=== PATIENT | male | born 1995 | race African-American/Black ===

== ENCOUNTER 2017-03-17 04:24 | Emergency (ER) | payer MEDICAID, OTHER ==
[2017-03-17 04:37] VITALS: BP 145/76
== END 2017-03-17 06:00 | disposition left against medical advice (07) ==
LOC: ER 04:24
DX: Z53.9 Procedure and treatment not carried out, unspecified reason (principal); S09.92XA Unspecified injury of nose, initial encounter

== ENCOUNTER 2017-03-17 10:24 | Emergency (ER) | payer OTHER, MEDICAID ==
[2017-03-17 10:35] VITALS: BP 148/91
[2017-03-17] MEDS ORDERED: IBUPROFEN 800 MG TABLET PO ONE (11:02)
[2017-03-17] MEDS ORDERED: AMOXICILLIN TR/POT CLAVULANATE 500-125 MG TAB PO ONE (11:03)
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
== END 2017-03-17 12:10 | disposition home or self-care (01) ==
LOC: ER 10:24
DX: S09.90XA Unspecified injury of head, initial encounter (principal); S00.31XA Abrasion of nose, initial encounter; F12.90 Cannabis use, unspecified, uncomplicated; F17.200 Nicotine dependence, unspecified, uncomplicated; W50.3XXA Accidental bite by another person, initial encounter
CPT/HCPCS: 70450; 99284

== ENCOUNTER 2017-03-20 15:35 | Emergency (ER) | payer MEDICAID, OTHER ==
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
[2017-03-20 16:14] LABS: ABSOLUTE EOSINOPHILS # (AUTO) 0.1 10^3/uL (0.0-0.6); ABSOLUTE LYMPHOCYTES (AUTO) 1.8 10^3/uL (0.5-4.7); ABSOLUTE MONOCYTES (AUTO) 0.6 10^3/uL (0.1-1.4); ABSOLUTE NEUT (AUTO) 2.7 10^3/uL (1.7-8.2); BASOPHILS % (AUTO) 0.6 % (0-2); EOSINOPHILS % (AUTO) 1.4 % (0-6); HEMATOCRIT 45.4 % (37.9-51.0); HEMOGLOBIN 15.4 g/dL (13.5-17.0); HGB HCT DIFFERENCE 0.8; LYMPHOCYTES % (AUTO) 35.3 % (13-45); MEAN CORPUSCULAR HEMOGLOBIN 30.3 pg (27.0-33.4); MEAN CORPUSCULAR VOLUME 89 fl (80-97); MONOCYTES % (AUTO) 10.8 % (3-13); RED CELL DISTRIBUTION WIDTH 13.6 % (11.5-14.0); SEGMENTED NEUTROPHILS % (AUTO) 51.9 % (42-78); WHITE BLOOD COUNT 5.1 10^3/uL (4.0-10.5)
[2017-03-20 16:42] LABS: ALANINE AMINOTRANSFERASE 50 U/L (10-40); ALBUMIN 4.7 g/dL (3.7-5.6); ALKALINE PHOSPHATASE 54 U/L (65-260); ANION GAP 10 (5-19); ASPARTATE AMINO TRANSFERASE 107 U/L (10-45); BILIRUBIN,DIRECT 0.3 mg/dL (0.0-0.4); BILIRUBIN,TOTAL 1.5 mg/dL (0.2-1.3); BLOOD UREA NITROGEN 11 mg/dL (7-20); CALCIUM 10.6 mg/dL (8.4-10.2); CARBON DIOXIDE 28 mmol/L (22-30); CHLORIDE 105 mmol/L (98-107); CREATININE RESULT 1.19 mg/dL (0.52-1.25); GLUCOSE 83 mg/dL (75-110); POTASSIUM 4.1 mmol/L (3.6-5.0); SODIUM 143.4 mmol/L (137-145); TOTAL PROTEIN 7.3 g/dL (6.3-8.2)
[2017-03-20 16:43] LABS: ALCOHOL < 10 mg/dL (NONE DETECTED)
[2017-03-20 17:04] LABS: APPEARANCE,URINE CLEAR; BILIRUBIN,URINE NEGATIVE (NEGATIVE); GLUCOSE, URINE NEGATIVE (NEGATIVE); KETONES,URINE NEGATIVE (NEGATIVE); LEUKOCYTE ESTERASE,URINE NEGATIVE (NEGATIVE); NITRITE,URINE NEGATIVE (NEGATIVE); PROTEIN,URINE NEGATIVE (NEGATIVE); URINE SPECIFIC GRAVITY 1.027; UROBILINOGEN,URINE NEGATIVE mg/dL (<2.0)
[2017-03-20] MEDS ORDERED: OLANZAPINE 5 MG TAB.RAPDIS PO ONE (17:15)
[2017-03-20] MEDS ORDERED: FLUOXETINE HCL 20 MG CAPSULE PO ONE (17:16)
[2017-03-20] MEDS ORDERED: BENZTROPINE MESYLATE 1 MG TABLET PO ONE (17:17)
[2017-03-20 17:18] LABS: URINE BARBITURATES SCREEN NEGATIVE; URINE METHADONE SCREEN NEGATIVE; URINE OPIATES LOW NEGATIVE; URINE PHENCYCLIDINE SCREEN NEGATIVE
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
[2017-03-20] MEDS ORDERED: OLANZAPINE INJ/PF 10 MG SDV IM ONE (17:41)
[2017-03-20] MEDS ORDERED: BENZTROPINE MESYLATE INJ 2 MG/2 ML AMPULE IM ONE (17:45)
[2017-03-20] MEDS: OLANZAPINE 5 MG TABLET PO SCH (19:43)
--- NOTE | 2017-03-20 20:08 | EKG REPORT ---
SEVERITY:- OTHERWISE NORMAL ECG - SINUS BRADYCARDIA ATRIAL PREMATURE COMPLEX ST ELEV, PROBABLE NORMAL EARLY REPOL PATTERN : Confirmed by: Jb Feldman 20-Mar-2017 20:07:49
[2017-03-21] MEDS: OLANZAPINE 5 MG TABLET PO SCH (09:46)
--- NOTE | 2017-03-21 12:44 | ER Document Report ---
ED Medical Screen (RME) - General Chief Complaint: Psych Problem Stated Complaint: PSYCH EVAL Time Seen by Provider: 03/20/17 15:42 Mode of Arrival: Ambulatory Notes: Patient is resting comfortably in the bed. He is pleasant and cooperative. He denies any current complaints. He is currently awaiting disposition. TRAVEL OUTSIDE OF THE U.S. IN LAST 30 DAYS: No - Related Data Allergies/Adverse Reactions: No Known Allergies Allergy (Verified 03/17/17 10:32) Home Medications: Current Home Medications Amox Tr/Potassium Clavulanate [Augmentin 875-125 mg Tablet] 1 tab PO BID [History] Past Medical History - Social History Chew tobacco use (# tins/day): No Frequency of alcohol use: None Drug Abuse: None Renal/ Medical History: Denies: Hx Peritoneal Dialysis Traumatic Medical History: Reports: Hx Pneumothorax - Immunizations Immunizations up to date: Yes Hx Diphtheria, Pertussis, Tetanus Vaccination: Yes Physical Exam - Vital signs Vitals: Pulse BP Pulse Ox 81 150/96 H 81 L 03/20/17 15:53 03/20/17 15:53 03/20/17 15:53 Course - Vital Signs Vital signs: Temp Pulse Resp BP Pulse Ox 98.3 F 49 L 18 141/83 H 100 03/21/17 08:14 03/21/17 08:14 03/21/17 08:14 03/21/17 08:14 03/21/17 08:14 - Laboratory Result Diagrams: 03/20/17 16:00 03/20/17 16:00 Laboratory results interpreted by me: 03/20/17 03/20/17 16:00 16:55 Calcium 10.6 H Total Bilirubin 1.5 H AST 107 H ALT 50 H Alkaline Phosphatase 54 L Urine Ascorbic Acid 40 H Salicylates < 1.0 L Acetaminophen < 10 L Doctor's Discharge - Discharge Clinical Impression: Acute matilde, Homicidal ideation Condition: Stable Disposition: HOME, SELF-CARE Referrals: HERMANN MONTERO DO [Primary Care Provider] - Follow up as needed
[2017-03-21 15:27] VITALS: BP 145/98
== END 2017-03-21 15:34 | disposition home or self-care (01) ==
LOC: ER 15:35
DX: R45.851 Suicidal ideations (principal); Z91.14 Patient's other noncompliance with medication regimen; R45.850 Homicidal ideations; F30.8 Other manic episodes
CPT/HCPCS: 93005; 99285; 96372; 36415; 80307 ×4; 85025; 80053; 81001; 93010; J0515

== ENCOUNTER 2017-05-09 16:01 | Emergency (ER) | payer MEDICAID, OTHER ==
[2017-05-09] MEDS ORDERED: LORAZEPAM INJ 2 MG/1 ML VIAL IV ONE (16:13)
[2017-05-09] MEDS ORDERED: NORMAL SALINE 1000 ML 1,000 ML IV ONE (16:13)
[2017-05-09] MEDS ORDERED: DIPHENHYDRAMINE HCL 50 MG/ML VIAL IV ONE (16:16)
--- NOTE | 2017-05-09 16:49 | ER Document Report ---
ED Psych Disorder / Suicide - General Information source: Patient Cannot obtain history due to: Altered mental status TRAVEL OUTSIDE OF THE [place] IN LAST 30 DAYS: No <MARIAH CLARK - Last Filed: 05/09/17 16:47> <MARQUIS SPARKS - Last Filed: 05/10/17 10:52> <TORI STRONG - Last Filed: 05/12/17 09:31> <HERMANN SMITH - Last Filed: 05/12/17 10:43> - General Chief Complaint: Possible Overdose Stated Complaint: POSSIBLE OVERDOSE Time Seen by Provider: 05/09/17 16:11 - HPI Notes: Patient presents to [facility] ER via EMS due to intentional overdose of his Olanzapine. Patient at this time is altered and required medications to assist him in remaining calm for his safety and the safety of others. Patient is recommended for IVC, as he did report he "did it on purpose" for further observation and disposition. I consulted with Dr. Morse in regards to the care and management of this patient. ED MD is in agreement with disposition and recommendations. (MARIAH CLARK) Clinician conducted check-in with patient 05/10/2017: Clinician denies that he took his medication in attempt of suicide. She disclosed "I was down and try to pick myself up." Patient state stated he took too much of his lorazepam. Clinician explained the patient is not prescribed lorazepam he stated "my Zyprexa." Patient presented to [facility] ED with 4 bottles of medications which include Zyprexa, Vistaril, trazodone and Trileptal; all medication bottles were empty. [facility] staff originally was told patient took 5 Trileptal. Patient is still presenting with difficulty staying awake and balance. His mother disclosed the patient had no psychiatric history when he went away to college in [place]. She continued disclosed that the patient's father and she received information the patient started experimenting and drugs and was not attending classes. Patient's father went up to [place] to bead picker the patient and "this is how we got him back." Chart review conducted. Patient is noted to have first [facility] ED psych consult 1 year ago April 2016. Patient identified suicidal ideation with history of attempts and possible psychosocial stressors. No sign of psychosis at that time. Patient was then seen a few weeks later where the patient appeared to be responding to internal stimuli while patient disclosed he was at [facility] because of his drug use. 292.9 (F19.99) unspecified or unknown substance related disorder per history 311 (F32.9) unspecified depressive disorder per history V 62.9 (Z65.9) unspecified problem related to unspecified psychosocial circumstance Patient is still demonstrating difficulties with staying alert. Patient is recommended to continue under IVC because continued cognitive difficulties. Patient will need to be re-evaluated. Dr. Morse was consulted and the care and management of this patient; attending physician is in agreement with recommendations and disposition. Clinician conducted check-in with patient 05/11/2017: Patient disclosed that he needs to get some refills on his medication. Patient continued to state that he takes Zyprexa, Trileptal, Vistaril, and trazodone. When asked about medications and taking all of them at once patient stated "not all of them." Patient reports he is unsure of the last time he went to his therapeutic services because originally he was with [facility] and then transferred to [facility]. Patient states that he was supposed to go to [facility] for his appointment today. When asked about his experience at [facility] he disclosed that he be went on academic probation and then dropped out. Patient refuses to discuss anything further. Patient is very guarded when asked about substance abuse. 292.9 (F19.99) unspecified or unknown substance related disorder per history 311 (F32.9) unspecified depressive disorder per history V 62.9 (Z65.9) unspecified problem related to unspecified psychosocial circumstance Impression\\plan: Patient was recommended for medication adjustments by behavioral health team; however, those medications could not be started until today because of psychosis/overdoses. Patient is still very guarded on his intent. Patient is recommended to continue under IVC for observation and stabilization on new medication regiment. Patient will be reevaluated. Dr. Morse was consulted on the care management of this patient; attending physician is agreement with recommendations and disposition. Clinician conducted check-in with patient 05/12/2017: Patient disclosed that he is "feeling good" and has "more energy" today. He continued to state that he was wondering if there was any medication he could take for anxiety. He continues state that he was concerned that he was having issues with Prozac because it "makes me gassy." Patient was slightly more willing to discuss substance abuse. When asked if patient was doing any drugs he stated "they were all prescribed to me." When asked why the patient took so many at one time patient became very quiet and stated "I do not know...to get high." Patient denies he was attempting to harm himself when taking the medication. Patient disclosed that he had an appointment with [facility] for intake yesterday at 9 AM. 292.9 (F19.99) unspecified or unknown substance related disorder per history 311 (F32.9) unspecified depressive disorder per history V 62.9 (Z65.9) unspecified problem related to unspecified psychosocial circumstance R/O bipolar disorder Impression/plan: Patient is recommended for rescind of IVC and is considered psychiatrically clear for discharge. Patient no longer meets IVC criteria per [place] GS 122C. Patient denies suicidal and homicidal ideation. Delusions are absent and behaviors congruent with intact reality based presentation i.e. organized, linear thought processes. Patient is still slightly guarded in regards to substance abuse however does a bit to taking his medications and attempt at getting high. Patient has had a full 24 hours of new medication regiment with no complications. Patient is recommended to follow-up with outpatient provider, ANAID Kay, upon discharge. Dr. Morse was consulted on the care and management of this patient; attending physician is in agreement with recommendations and disposition. (TORI STRONG) - Related Data Allergies/Adverse Reactions: No Known Allergies Allergy (Verified 05/09/17 16:32) Home Medications: Current Home Medications Hydroxyzine Pamoate [Vistaril 50 mg Capsule] 50 mg PO BIDP PRN 05/09/17 [History ] Olanzapine [Olanzapine Odt] 15 mg PO Q12 05/09/17 [History] Oxcarbazepine [Trileptal] 600 mg PO Q12 05/09/17 [History] Trazodone HCl [Desyrel] 150 mg PO QHS 05/09/17 [History] Past Medical History - Social History Family History: None Patient has suicidal ideation: No Patient has homicidal ideation: No Renal/ Medical History: Denies: Hx Peritoneal Dialysis Traumatic Medical History: Reports: Hx Pneumothorax - Immunizations Immunizations up to date: Yes Hx Diphtheria, Pertussis, Tetanus Vaccination: Yes <AMBER,MARIAH - Last Filed: 05/09/17 16:47> - Social History Smoking Status: Unknown if Ever Smoked <TORI STRONG - Last Filed: 05/12/17 09:31> - Vital signs Vitals: Resp 28 H 05/09/17 16:10 Course - Laboratory Result Diagrams: 05/09/17 16:30 05/09/17 16:30 <MARIAH CLARK - Last Filed: 05/09/17 16:47> - Laboratory Result Diagrams: 05/09/17 16:30 05/09/17 16:30 <MARQUIS SPARKS - Last Filed: 05/10/17 10:52> - Laboratory Result Diagrams: 05/09/17 16:30 05/09/17 16:30 <TORI STRONG - Last Filed: 05/12/17 09:31> - Laboratory Result Diagrams: 05/09/17 16:30 05/09/17 16:30 <HERMANN SMITH - Last Filed: 05/12/17 10:43> - Re-evaluation Re-evalutation: Patient has been seen and evaluated resting comfortably no acute distress. Laboratory values previous provider note and vital signs have been evaluated. Patient otherwise looks to be stable for disposition/transfer. Medications have been ordered for tomorrow. Patient was to be in no obvious distress upon evaluation. (MARQUIS SPARKS) - Vital Signs Vital signs: Temp Pulse Resp BP Pulse Ox 98.5 F 102 H 16 144/83 H 99 05/11/17 19:32 05/12/17 07:03 05/11/17 19:32 05/11/17 19:32 05/12/17 07:03 - Laboratory Laboratory results interpreted by me: 05/09/17 16:30 Sodium 145.9 H Creatinine 1.37 H Alkaline Phosphatase 54 L Salicylates < 1.0 L Acetaminophen < 10 L Discharge <MARIAH CLARK - Last Filed: 05/09/17 16:47> <MARQUIS SPARKS - Last Filed: 05/10/17 10:52> <TORI STRONG - Last Filed: 05/12/17 09:31> <HERMANN SMITH - Last Filed: 05/12/17 10:43> - Discharge Clinical Impression: Substance abuse, Depressive disorder Condition: Stable Disposition: HOME, SELF-CARE Additional Instructions: OVERDOSE / INGESTION: You have taken more medication than you should have. After your evaluation and care, it is felt that your overdose is not likely to be harmful or of any significant consequences to you and you are being discharged. In the future, you should be careful not to take more medications than what is prescribed for you. Although your overdose does not seem to be of any danger to you at this time, if you develop any unusual or unexpected symptoms after your discharge, you should return to the Emergency Department immediately for re-evaluation. DEPRESSION: Your evaluation reveals that you have mental depression. While symptoms may be vague, they often include disturbance of sleep, fatigue, loss of appetite , and general loss of interest in life. While depression may be a side effect of drugs, or a reaction to a major change in your life, many cases have no known cause. If depression is acute, and related to a major loss in your life, you can expect it to clear completely with time. If you have been depressed a long time , are prone to repeated bouts of depression or low mood, or have been thinking of suicide, get help. Depression can be treated with anti-depressant medication and counselling. Long-term depression will often take a few weeks to clear, even with appropriate medication. Follow-up care is important. FOLLOW-UP CARE: Please follow-up with your outpatient mental health provider, [facility], upon discharge to make an appointment. ~ If you experience worsening or a significant change in your symptoms, notify the physician immediately or return to the Emergency Department at any time for re-evaluation. Prescriptions: Benztropine Mesylate [Cogentin 1 mg Tablet] 1 tab PO DAILY #5 tab Fluoxetine HCl [Prozac 20 mg Capsule] 20 mg PO DAILY #5 capsule Olanzapine [Zyprexa 5 mg Tablet] 5 mg PO Q12 #10 tablet Oxcarbazepine [Trileptal] 600 mg PO Q12H #10 tablet Referrals: HERMANN MONTERO, [Primary Care Provider] - Follow up as needed [facility] [Outside] - 05/12/17
[2017-05-09 16:50] LABS: ABSOLUTE EOSINOPHILS # (AUTO) 0.3 10^3/uL (0.0-0.6); ABSOLUTE LYMPHOCYTES (AUTO) 2.5 10^3/uL (0.5-4.7); ABSOLUTE MONOCYTES (AUTO) 0.7 10^3/uL (0.1-1.4); ABSOLUTE NEUT (AUTO) 3.2 10^3/uL (1.7-8.2); BASOPHILS % (AUTO) 0.7 % (0-2); EOSINOPHILS % (AUTO) 4.2 % (0-6); HEMATOCRIT 44.4 % (37.9-51.0); HEMOGLOBIN 15.1 g/dL (13.5-17.0); HGB HCT DIFFERENCE 0.9; LYMPHOCYTES % (AUTO) 37.4 % (13-45); MEAN CORPUSCULAR HEMOGLOBIN 29.8 pg (27.0-33.4); MEAN CORPUSCULAR HGB CONC 34.1 g/dL (32.0-36.0); MEAN CORPUSCULAR VOLUME 88 fl (80-97); MONOCYTES % (AUTO) 9.9 % (3-13); RED BLOOD COUNT 5.07 10^6/uL (4.35-5.55); RED CELL DISTRIBUTION WIDTH 12.9 % (11.5-14.0); SEGMENTED NEUTROPHILS % (AUTO) 47.8 % (42-78); WHITE BLOOD COUNT 6.6 10^3/uL (4.0-10.5)
[2017-05-09 17:01] LABS: APPEARANCE,URINE CLEAR; BILIRUBIN,URINE NEGATIVE (NEGATIVE); GLUCOSE, URINE NEGATIVE (NEGATIVE); KETONES,URINE NEGATIVE (NEGATIVE); LEUKOCYTE ESTERASE,URINE NEGATIVE (NEGATIVE); NITRITE,URINE NEGATIVE (NEGATIVE); PROTEIN,URINE NEGATIVE (NEGATIVE); URINE SPECIFIC GRAVITY 1.002; UROBILINOGEN,URINE NEGATIVE mg/dL (<2.0)
[2017-05-09 17:14] LABS: ALANINE AMINOTRANSFERASE 37 U/L (10-40); ALBUMIN 4.6 g/dL (3.7-5.6); ALKALINE PHOSPHATASE 54 U/L (65-260); ANION GAP 16 (5-19); ASPARTATE AMINO TRANSFERASE 31 U/L (10-45); BILIRUBIN,DIRECT 0.3 mg/dL (0.0-0.4); BILIRUBIN,TOTAL 1.2 mg/dL (0.2-1.3); BLOOD UREA NITROGEN 15 mg/dL (7-20); CALCIUM 9.8 mg/dL (8.4-10.2); CARBON DIOXIDE 27 mmol/L (22-30); CHLORIDE 103 mmol/L (98-107); CREATININE RESULT 1.37 mg/dL (0.52-1.25); GLUCOSE 83 mg/dL (75-110); POTASSIUM 4.1 mmol/L (3.6-5.0); SODIUM 145.9 mmol/L (137-145); TOTAL PROTEIN 7.4 g/dL (6.3-8.2)
[2017-05-09 17:15] LABS: ALCOHOL < 10 mg/dL (NONE DETECTED)
[2017-05-09 17:23] LABS: URINE BARBITURATES SCREEN NEGATIVE; URINE METHADONE SCREEN NEGATIVE; URINE OPIATES LOW NEGATIVE; URINE PHENCYCLIDINE SCREEN NEGATIVE
[2017-05-09] MEDS ORDERED: LORAZEPAM INJ 2 MG/1 ML VIAL IM ONE ×3 (17:34→23:27)
[2017-05-09] MEDS ORDERED: LORAZEPAM INJ 2 MG/1 ML VIAL ONE (17:36)
--- NOTE | 2017-05-09 18:17 | EKG REPORT ---
SEVERITY:- ABNORMAL ECG - SINUS TACHYCARDIA DIFFUSE NONSPECIFIC ST-T CHANGES : Confirmed by: Alexis Dumont MD 09-May-2017 18:16:25
[2017-05-09] MEDS ORDERED: ACETAMINOPHEN 325 MG TABLET PO ONE (23:26)
--- NOTE | 2017-05-10 10:59 | ER Document Report ---
ED General - General Chief Complaint: Possible Overdose Stated Complaint: POSSIBLE OVERDOSE Time Seen by Provider: 05/09/17 16:11 TRAVEL OUTSIDE OF THE [place] IN LAST 30 DAYS: No - HPI Patient complains to provider of: Overdose Notes: HPI is performed at this time due to possible [employer] error in the leading original HPI. Patient came in yesterday for an overdose. Patient took approximately 15 tablets 5 mg of Zyprexa. Upon my evaluation patient has jerking motions and is agitated. Patient was given Ativan, and down. Patient is unaware why he took some any medications denies any suicidal ideation. Later family arrived stating the patient took extra medication because he had not been taking it and wanted to "catch up". - Related Data Allergies/Adverse Reactions: No Known Allergies Allergy (Verified 05/09/17 16:32) Home Medications: Current Home Medications Hydroxyzine Pamoate [Vistaril 50 mg Capsule] 50 mg PO BID PRN 05/09/17 [History] Olanzapine [Olanzapine Odt] 15 mg PO BID 05/09/17 [History] Oxcarbazepine [Trileptal] 600 mg PO BID 05/09/17 [History] Trazodone HCl [Desyrel] 150 mg PO DAILY 05/09/17 [History] Past Medical History - General Information source: Patient - Social History Smoking Status: Unknown if Ever Smoked Family History: None Patient has suicidal ideation: No Patient has homicidal ideation: No Renal/ Medical History: Denies: Hx Peritoneal Dialysis Psychiatric Medical History: Reports: Hx Bipolar Disorder Traumatic Medical History: Reports: Hx Pneumothorax - Immunizations Immunizations up to date: Yes Hx Diphtheria, Pertussis, Tetanus Vaccination: Yes Review of Systems - Review of Systems -: Yes ROS unobtainable due to patient's medical condition - Overdose of unknown intent Physical Exam - Vital signs Vitals: Resp 28 H 05/09/17 16:10 Interpretation: Normal - General General appearance: Alert, Other - Agitated - HEENT Head: Normocephalic, Atraumatic Eyes: Normal Pupils: PERRL - Respiratory Respiratory status: No respiratory distress Chest status: Nontender Breath sounds: Normal Chest palpation: Normal - Cardiovascular Rhythm: Regular Heart sounds: Normal auscultation Murmur: No - Abdominal Inspection: Normal Distension: No distension Bowel sounds: Normal Tenderness: Nontender Organomegaly: No organomegaly - Back Back: Normal, Nontender - Extremities General upper extremity: Normal inspection, Nontender, Normal color, Normal ROM , Normal temperature General lower extremity: Normal inspection, Nontender, Normal color, Normal ROM , Normal temperature, Normal weight bearing. No: Devon's sign - Neurological Neuro grossly intact: Yes Cognition: Normal Orientation: AAOx4 Javan Coma Scale Eye Opening: Spontaneous Javan Coma Scale Verbal: Oriented [place] Coma Scale Motor: Obeys Commands [place] Coma Scale Total: 15 Speech: Normal Motor strength normal: LUE, RUE, LLE, RLE Sensory: Normal - Psychological Associated symptoms: Agitated - Skin Skin Temperature: Warm Skin Moisture: Dry Skin Color: Normal Course - Re-evaluation Re-evalutation: 05/10/17 10:59 Patient was placed on IVC paperwork at this time overdose of unknown intent possible self-harm. Will be evaluated by mental health team. - Vital Signs Vital signs: Temp Pulse Resp BP Pulse Ox 98.2 F 88 18 122/82 100 05/10/17 10:48 05/10/17 10:48 05/10/17 10:48 05/10/17 10:48 05/10/17 10:48 - Laboratory Result Diagrams: 05/09/17 16:30 05/09/17 16:30 Laboratory results interpreted by me: 05/09/17 16:30 Sodium 145.9 H Creatinine 1.37 H Alkaline Phosphatase 54 L Salicylates < 1.0 L Acetaminophen < 10 L Discharge - Discharge Referrals: HERMANN MONTERO DO [Primary Care Provider] - Follow up as needed
--- NOTE | 2017-05-10 11:00 | ER Document Report ---
Doctor's Note Notes: 05/10/17 10:59 Patient has been seen and evaluated resting comfortably no acute distress. Laboratory values previous provider note and vital signs have been evaluated. Patient otherwise looks to be stable for disposition/transfer.
--- NOTE | 2017-05-11 09:20 | ER Document Report ---
Doctor's Note Notes: 05/11/17 09:19 This is a 21-year-old man with a psychiatric history who is brought into the emergency room by EMS after an overdose with olanzapine. The patient initially required sedation in the emergency room and was subsequently medically cleared. His labs and vital signs have been stable. He is currently awaiting further psychiatric evaluation.
[2017-05-11] MEDS: OLANZAPINE 5 MG TABLET PO SCH ×2 (10:09→19:30)
[2017-05-11] MEDS: FLUOXETINE HCL 20 MG CAPSULE PO SCH (10:09)
[2017-05-11] MEDS: OXCARBAZEPINE 150 MG TABLET PO SCH ×2 (10:10→19:30)
[2017-05-11] MEDS: BENZTROPINE MESYLATE 1 MG TABLET PO SCH (10:10)
[2017-05-11 19:33] VITALS: BP 144/83
[2017-05-11] MEDS ORDERED: HYDROXYZINE PAMOATE 25 MG CAPSULE PO ONE (22:30)
--- NOTE | 2017-05-12 10:11 | ER Document Report ---
Doctor's Note Notes: 05/12/17 10:11 Rounds: Chart reviewed and patient interviewed. Patient is being evaluated after an overdose of olanzapine. Labs are essentially normal. Vital signs are all essentially normal. Patient denies suicidal thoughts. Patient appears to be medically stable for transfer or discharge. Abdias Bush MD
[2017-05-12] MEDS: BENZTROPINE MESYLATE 1 MG TABLET PO SCH (10:45)
[2017-05-12] MEDS: FLUOXETINE HCL 20 MG CAPSULE PO SCH (10:46)
[2017-05-12] MEDS: OLANZAPINE 5 MG TABLET PO SCH (10:46)
[2017-05-12] MEDS: OXCARBAZEPINE 150 MG TABLET PO SCH (10:46)
== END 2017-05-12 12:58 | disposition home or self-care (01) ==
LOC: ER 16:01
DX: F19.99 Other psychoactive substance use, unspecified with unspecified psychoactive substance-induced disorder (principal); R41.82 Altered mental status, unspecified; T43.591A Poisoning by other antipsychotics and neuroleptics, accidental (unintentional), initial encounter; F32.9 Major depressive disorder, single episode, unspecified; Z65.9 Problem related to unspecified psychosocial circumstances
CPT/HCPCS: 93005; 96376; 99285; 96372; 96361; 96374; 96375; 36415; 80307 ×4; 85025; 80053; 81001; 93010; J1200; J2060; J7030

== ENCOUNTER 2017-12-05 00:12 | Emergency (ER) | payer MEDICAID, OTHER ==
[2017-12-05] MEDS ORDERED: DIPH/PERTUSS(ACELL)/TETANUS VAC/PF 0.5 ML SYR (>=10YO) IM ONE (00:43)
[2017-12-05] MEDS ORDERED: NORMAL SALINE 1000 ML 1,000 ML IV ONE ×2 (00:43→03:02)
[2017-12-05] MEDS ORDERED: ONDANSETRON HCL INJ/PF 4 MG/2 ML SDV IV ONE (00:43)
--- NOTE | 2017-12-05 00:45 | ER Document Report ---
ED GI/ - General Chief Complaint: Nausea/Vomiting Stated Complaint: VOMITING Time Seen by Provider: 12/05/17 00:42 Mode of Arrival: Ambulatory Information source: Patient Notes: Patient presents complaining of nausea vomiting diarrhea that started this evening. Patient complains of some generalized abdominal tenderness. Patient states she is vomited 6 times and had diarrhea 2. Patient denies any blood in his emesis or stool. TRAVEL OUTSIDE OF THE [place] IN LAST 30 DAYS: No - HPI Patient complains to provider of: Abdominal pain, Diarrhea, Vomiting Onset: This evening Timing/Duration: Gradual Quality of pain: Cramping Pain Level: 2 Associated symptoms: Diarrhea, Nausea, Vomiting. denies: Fever Exacerbated by: Denies Relieved by: Denies Similar symptoms previously: No Recently seen / treated by doctor: No - Related Data Allergies/Adverse Reactions: No Known Allergies Allergy (Verified 05/09/17 16:32) Past Medical History - General Information source: Patient - Social History Smoking Status: Never Smoker Frequency of alcohol use: None Drug Abuse: Marijuana Occupation: None Lives with: Family Family History: None Renal/ Medical History: Denies: Hx Peritoneal Dialysis Psychiatric Medical History: Reports: Hx Bipolar Disorder Traumatic Medical History: Reports: Hx Pneumothorax Surgical Hx: Negative - Immunizations Immunizations up to date: Yes Hx Diphtheria, Pertussis, Tetanus Vaccination: Yes Review of Systems - Review of Systems Constitutional: No symptoms reported. denies: Fever EENT: No symptoms reported Cardiovascular: No symptoms reported Respiratory: No symptoms reported. denies: Cough, Short of breath Gastrointestinal: Abdominal pain, Diarrhea, Nausea, Vomiting Genitourinary: No symptoms reported. denies: Dysuria Male Genitourinary: No symptoms reported Musculoskeletal: No symptoms reported. denies: Back pain Skin: No symptoms reported Hematologic/Lymphatic: No symptoms reported Neurological/Psychological: No symptoms reported Physical Exam - Vital signs Vitals: Pulse Resp BP Pulse Ox 82 18 138/72 H 99 12/05/17 05:07 12/05/17 05:07 12/05/17 05:07 12/05/17 05:07 - General General appearance: Appears well, Alert In distress: None - HEENT Head: Abrasions, Ecchymosis - nasal bridge, left orbital area. No: [place]'s eyes Eyes: Periorbital ecchymosis - left Conjunctiva: Normal Extraocular movements intact: Yes Pupils: PERRL Nasal: Ecchymosis, Swelling. No: Epistaxis, Septal hematoma Neck: Normal, Supple - Respiratory Respiratory status: No respiratory distress Chest status: Nontender Breath sounds: Normal. No: Rales, Rhonchi, Stridor, Wheezing Chest palpation: Normal - Cardiovascular Rhythm: Regular Heart sounds: S1 appreciated, S2 appreciated Murmur: No - Abdominal Inspection: Normal Distension: No distension Bowel sounds: Normal Tenderness: Tender - Generalized abdominal tenderness Organomegaly: No organomegaly - Back Back: Normal, Nontender - Extremities General upper extremity: Normal inspection, Normal ROM General lower extremity: Normal inspection, Normal ROM - Neurological Neuro grossly intact: Yes Cognition: Normal [place] Coma Scale Eye Opening: Spontaneous [place] Coma Scale Verbal: Oriented [place] Coma Scale Motor: Obeys Commands [place] Coma Scale Total: 15 - Psychological Associated symptoms: Normal affect, Normal mood - Skin Skin Color: Ecchymosis - Left periorbital Course - Re-evaluation Re-evalutation: 12/05/17 04:29 Patient sleeping, arouses easily to voice. Patient without any active vomiting while here in the ER. Patient tolerating oral fluids without emesis. Patient' s abdomen soft, nontender. Patient nontoxic in appearance. - Vital Signs Vital signs: Temp Pulse Resp BP Pulse Ox 82 18 138/72 H 99 12/05/17 05:07 12/05/17 05:07 12/05/17 05:07 12/05/17 05:07 - Laboratory Result Diagrams: 12/05/17 01:02 12/05/17 01:02 Laboratory results interpreted by me: 12/05/17 12/05/17 12/05/17 01:02 01:02 02:36 Seg Neutrophils % 78.8 H Lymphocytes % 6.7 L Absolute Lymphocytes 0.4 L Sodium 148.1 H Glucose 126 H Calcium 10.5 H Total Bilirubin 2.5 H Urine Protein 30 H Urine Ketones 80 H Labs- Entire Visit 12/05/17 12/05/17 12/05/17 01:02 01:02 02:36 WBC 5.4 RBC 5.10 Hgb 15.4 Hct 44.7 MCV 88 MCH 30.2 MCHC 34.5 RDW 13.7 Plt Count 229 Seg Neutrophils % 78.8 H Lymphocytes % 6.7 L Monocytes % 9.2 Eosinophils % 4.9 Basophils % 0.4 Absolute Neutrophils 4.3 Absolute Lymphocytes 0.4 L Absolute Monocytes 0.5 Absolute Eosinophils 0.3 Absolute Basophils 0.0 Sodium 148.1 H Potassium 3.8 Chloride 107 Carbon Dioxide 22 Anion Gap 19 BUN 16 Creatinine 1.02 Est GFR ( Amer) > 60 Est GFR (Non-Af Amer) > 60 Glucose 126 H Calcium 10.5 H Total Bilirubin 2.5 H Direct Bilirubin 0.3 Neonat Total Bilirubin Not Reportable Neonat Direct Bilirubin Not Reportable Neonat Indirect Bili Not Reportable AST 32 ALT 30 Alkaline Phosphatase 60 Total Protein 7.7 Albumin 4.8 Lipase 79.9 Urine Color YELLOW Urine Appearance CLEAR Urine pH 7.0 Ur Specific [place] 1.032 Urine Protein 30 H Urine Glucose (UA) NEGATIVE Urine Ketones 80 H Urine Blood NEGATIVE Urine Nitrite NEGATIVE Urine Bilirubin NEGATIVE Urine Urobilinogen NEGATIVE Ur Leukocyte Esterase NEGATIVE Urine WBC (Auto) 2 Urine RBC (Auto) 1 Squamous Epi Cells Auto <1 Urine Mucus (Auto) FEW Urine Ascorbic Acid NEGATIVE Urine Opiates Screen Urine Methadone Screen Ur Barbiturates Screen Ur Phencyclidine Scrn Ur Amphetamines Screen U Benzodiazepines Scrn Urine Cocaine Screen U Marijuana (THC) Screen 12/05/17 02:36 WBC RBC Hgb Hct MCV MCH MCHC RDW Plt Count Seg Neutrophils % Lymphocytes % Monocytes % Eosinophils % Basophils % Absolute Neutrophils Absolute Lymphocytes Absolute Monocytes Absolute Eosinophils Absolute Basophils Sodium Potassium Chloride Carbon Dioxide Anion Gap BUN Creatinine Est GFR ( Amer) Est GFR (Non-Af Amer) Glucose Calcium Total Bilirubin Direct Bilirubin Neonat Total Bilirubin Neonat Direct Bilirubin Neonat Indirect Bili AST ALT Alkaline Phosphatase Total Protein Albumin Lipase Urine Color Urine Appearance Urine pH Ur Specific [place] Urine Protein Urine Glucose (UA) Urine Ketones Urine Blood Urine Nitrite Urine Bilirubin Urine Urobilinogen Ur Leukocyte Esterase Urine WBC (Auto) Urine RBC (Auto) Squamous Epi Cells Auto Urine Mucus (Auto) Urine Ascorbic Acid Urine Opiates Screen NEGATIVE Urine Methadone Screen NEGATIVE Ur Barbiturates Screen NEGATIVE Ur Phencyclidine Scrn NEGATIVE Ur Amphetamines Screen NEGATIVE U Benzodiazepines Scrn NEGATIVE Urine Cocaine Screen NEGATIVE U Marijuana (THC) Screen UNCONFIRMED POSITIVE Discharge - Discharge Clinical Impression: Nausea vomiting and diarrhea Condition: Stable Disposition: HOME, SELF-CARE Additional Instructions: Return immediately for any new or worsening symptoms Followup with your primary care provider, call tomorrow to make a followup appointment VOMITING: Vomiting (or nausea without vomiting) can be caused by many other different problems. It can mean that something's wrong with the stomach, such as ulcers or inflammation or the intestinal tract, such as appendicitis. But it can also be a symptom of a problem that has nothing to do with the stomach or intestines. Vomiting is common with severe headaches, earaches, tonsillitis, and kidney infections, etc. We see it with pneumonia or heart attacks. Drugs can cause nausea and vomiting. Many abdominal problems cause vomiting; for example, gallstones, kidney stones, pancreatitis, and intestinal obstruction ( blocked bowels). In most cases, curing the vomiting depends on fixing the problem that caused it. For temporary relief, we may use an anti-nausea medicine. For home use, we can prescribe suppositories, chewable pills, pills that dissolve in the mouth, or liquid anti-nausea drugs. If the vomiting seems to be caused by a problem in the stomach, acid-suppressing drugs may be prescribed as well. It's important to avoid dehydration. Sip small amounts of clear liquids ( soft drinks, tea, broth, etc) . Try to take fluids frequently even if you are vomiting to prevent dehydration. Take increasing amounts of fluid and when liquids are being consumed successfully, advance to small amounts of bland food (toast, soups, mashed potatoes, etc.) until you are able to resume a regular diet. Avoid aspirin, tobacco, and alcohol. If the vomiting worsens, if the problem that's making you vomit worsens, or if there's evidence of bleeding in the stomach (such as black, tarry stool, or bloody or black vomit), you should return immediately. Also, return if abdominal pain worsens or becomes localized to one area or you develop high fever. Call your doctor if you aren't improved in 24 hours. DIARRHEA, NON-SPECIFIC: Diarrhea means frequent, watery stools. There are many causes. Any problem that keeps the intestinal tract from absorbing water from the stool can lead to diarrhea. A sudden new diarrhea problem is usually caused by a virus, food sensitivity, toxic bacteria, or drugs. In this case, we expect the problem to go away soon. Testing is done only if you seem seriously ill from the diarrhea. If you have chronic diarrhea, or diarrhea that keeps coming back, we need to find out why. Chronic diarrhea can be due to inflammation of the bowels such as Crohn's disease or ulcerative colitis, food sensitivity such as intolerance to lactose or wheat protein, irritable bowel syndrome, and other problems. If your diarrhea is a significant problem but it's not clear why you have it, we' ll refer you to a specialist for further testing. During an episode of diarrhea, drink small amounts (two to six ounces) of clear liquids (soft drinks, sport drinks, herb teas, broth, etc). Take fluids frequently to prevent dehydration. It's usually not a problem to take mild anti- diarrhea medication such as Kaopectate or Pepto-Bismol. As the diarrhea eases, advance to small amounts of bland food (mashed potato, toast) for 24 hours. Call the physician if blood appears in your vomit or stool, if vomiting lasts longer than 24 hours, if the abdominal pain worsens or becomes localized to one area, if you develop high fever, or if you become lightheaded and weak. VIRAL SYNDROME: The physician has diagnosed a viral infection. Viruses not only cause "colds," but can cause many different symptoms including generalized aching, fever, headache, cough, diarrhea, nausea, vomiting, and fatigue. The treatment, for the most part, is simply relief of symptoms. This means that antibiotics are usually not given. Rest, fluids, pain medications and, occasionally, medication for the specific symptoms that are most bothersome will be prescribed. Use good handwashing to avoid passing the virus to others. Shared toys should be cleaned with disinfectant. Clean the toilets, sinks, and counter surfaces in bathrooms. Launder clothing in hot water. Contact the physician if you develop any new or unusual symptoms such as severe headache, stiff neck, high fever, chest pain, productive cough, or shortness of breath. You should be rechecked if you don't see marked improvement within seven to 10 days. INTRAVENOUS (I V) FLUIDS: As part of your care today, you received intravenous (IV) fluids. IV fluids are administered to patients who are dehydrated or to those who have certain chemical (electrolyte) abnormalities that need correcting. ANTINAUSEA MEDICATION: You have been given a medication to suppress nausea and vomiting. This type of medication can be given as a shot, pill, or suppository. It will usually last for many hours. Pills and shots usually last six to eight hours. For the typical illness, only one or two doses of the medication may be necessary. Mild lightheadedness may occur. This type of medicine can cause drowsiness. Do not drive or operate dangerous machinery while under its influence. Do not mix with alcohol. See your doctor at once if you have muscle spasms or tightness, or uncontrollable motions (particularly of the neck, mouth, or jaw). Persistent vomiting or severe lightheadedness should also be evaluated by the physician. FOLLOW-UP CARE: If you have been referred to a physician for follow-up care, call the physician s office for an appointment as you were instructed or within the next two days. If you experience worsening or a significant change in your symptoms, notify the physician immediately or return to the Emergency Department at any time for re-evaluation. Prescriptions: Ondansetron HCl [Zofran 4 mg Tablet] 1 - 2 tab PO Q6 PRN #15 tablet PRN Reason: Referrals: [facility] [Provider Group] - Follow up tomorrow
[2017-12-05 01:12] LABS: ABSOLUTE EOSINOPHILS # (AUTO) 0.3 10^3/uL (0.0-0.6); ABSOLUTE LYMPHOCYTES (AUTO) 0.4 10^3/uL (0.5-4.7); ABSOLUTE MONOCYTES (AUTO) 0.5 10^3/uL (0.1-1.4); ABSOLUTE NEUT (AUTO) 4.3 10^3/uL (1.7-8.2); BASOPHILS % (AUTO) 0.4 % (0-2); EOSINOPHILS % (AUTO) 4.9 % (0-6); HEMATOCRIT 44.7 % (37.9-51.0); HEMOGLOBIN 15.4 g/dL (13.5-17.0); LYMPHOCYTES % (AUTO) 6.7 % (13-45); MEAN CORPUSCULAR HEMOGLOBIN 30.2 pg (27.0-33.4); MEAN CORPUSCULAR HGB CONC 34.5 g/dL (32.0-36.0); MEAN CORPUSCULAR VOLUME 88 fl (80-97); MONOCYTES % (AUTO) 9.2 % (3-13); PLATELET COUNT 229 10^3/uL (150-450); RED CELL DISTRIBUTION WIDTH 13.7 % (11.5-14.0); SEGMENTED NEUTROPHILS % (AUTO) 78.8 % (42-78); TOTAL CELLS COUNTED % (AUTO) 100 %; WHITE BLOOD COUNT 5.4 10^3/uL (4.0-10.5)
[2017-12-05 01:23] LABS: ALANINE AMINOTRANSFERASE 30 U/L (21-72); ALBUMIN 4.8 g/dL (3.5-5.0); ALKALINE PHOSPHATASE 60 U/L (38-126); ANION GAP 19 (5-19); ASPARTATE AMINO TRANSFERASE 32 U/L (17-59); BILIRUBIN,DIRECT 0.3 mg/dL (0.0-0.4); BILIRUBIN,TOTAL 2.5 mg/dL (0.2-1.3); BLOOD UREA NITROGEN 16 mg/dL (7-20); CALCIUM 10.5 mg/dL (8.4-10.2); CARBON DIOXIDE 22 mmol/L (22-30); CHLORIDE 107 mmol/L (98-107); GLUCOSE 126 mg/dL (75-110); LIPASE 79.9 U/L (23-300); POTASSIUM 3.8 mmol/L (3.6-5.0); SODIUM 148.1 mmol/L (137-145); TOTAL PROTEIN 7.7 g/dL (6.3-8.2)
[2017-12-05 02:55] LABS: APPEARANCE,URINE CLEAR; BILIRUBIN,URINE NEGATIVE (NEGATIVE); COLOR,URINE YELLOW; GLUCOSE, URINE NEGATIVE (NEGATIVE); KETONES,URINE 80 mg/dL (NEGATIVE); LEUKOCYTE ESTERASE,URINE NEGATIVE (NEGATIVE); NITRITE,URINE NEGATIVE (NEGATIVE); PROTEIN,URINE 30 mg/dL (NEGATIVE); URINE SPECIFIC GRAVITY 1.032; UROBILINOGEN,URINE NEGATIVE mg/dL (<2.0)
[2017-12-05 03:35] LABS: URINE AMPHETAMINES SCREEN NEGATIVE; URINE BARBITURATES SCREEN NEGATIVE; URINE BENZODIAZEPINES SCREEN NEGATIVE; URINE COCAINE SCREEN NEGATIVE; URINE MARIJUANA (THC) SCREEN UNCONFIRMED POSITIVE; URINE METHADONE SCREEN NEGATIVE; URINE PHENCYCLIDINE SCREEN NEGATIVE
[2017-12-05 05:09] VITALS: BP 138/72
== END 2017-12-05 05:08 | disposition home or self-care (01) ==
LOC: ER 00:12
DX: R11.2 Nausea with vomiting, unspecified (principal); R19.7 Diarrhea, unspecified; R10.84 Generalized abdominal pain; Z23 Encounter for immunization
CPT/HCPCS: 99284; 96361; 90471; 96374; 36415; 83690; 85025; 80053; 81001; 80307; 90715; J2405; J7030

== ENCOUNTER 2018-01-29 01:04 | Emergency (ER) | payer MEDICAID ==
[2018-01-29 01:10] VITALS: BP 133/70
[2018-01-29] MEDS ORDERED: ONDANSETRON 4 MG TAB.RAPDIS PO ONE (02:03)
--- NOTE | 2018-01-29 02:07 | ER Document Report ---
ED General - General Chief Complaint: Nausea Stated Complaint: NAUSEA/STOMACH PAIN Time Seen by Provider: 01/29/18 02:03 Notes: Patient is a 22-year-old male, past medical history bipolar, GERD, presents with 2 days of intermittent nausea and intermittent indigestion symptoms. He only having nausea upon my evaluation. Patient is also requesting restarting some of his bipolar medications, but not all of them. He denies current abdominal pain, vomiting, diarrhea, constipation, back pain, suicidal ideation, homicidal ideation, fevers or urinary symptoms. TRAVEL OUTSIDE OF THE [place] IN LAST 30 DAYS: No - Related Data Allergies/Adverse Reactions: No Known Allergies Allergy (Verified 05/09/17 16:32) Past Medical History - General Information source: Patient - Social History Smoking Status: Unknown if Ever Smoked Family History: None Renal/ Medical History: Denies: Hx Peritoneal Dialysis Psychiatric Medical History: Reports: Hx Bipolar Disorder Traumatic Medical History: Reports: Hx Pneumothorax - Immunizations Immunizations up to date: Yes Hx Diphtheria, Pertussis, Tetanus Vaccination: Yes Review of Systems - Review of Systems Notes: REVIEW OF SYSTEMS: CONSTITUTIONAL: -fevers, -chills EENT: -eye pain, -difficulty swallowing, -nasal congestion CARDIOVASCULAR: -chest pain, -syncope. RESPIRATORY: -cough, -SOB GASTROINTESTINAL: -abdominal pain, +nausea, -vomiting, -diarrhea GENITOURINARY: -dysuria, -hematuria MUSCULOSKELETAL: -back pain, -neck pain SKIN: -rash or skin lesions. HEMATOLOGIC: -easy bruising or bleeding. LYMPHATIC: -swollen, enlarged glands. NEUROLOGICAL: -altered mental status or loss of consciousness, -headache, - neurologic symptoms PSYCHIATRIC: -anxiety, -depression. ALL OTHER SYSTEMS REVIEWED AND NEGATIVE. Physical Exam - Vital signs Vitals: Temp Pulse Resp BP Pulse Ox 98.7 F 60 18 133/70 H 99 01/29/18 01:09 01/29/18 01:09 01/29/18 01:09 01/29/18 01:01/29/18 01:09 - Notes Notes: PHYSICAL EXAMINATION: GENERAL: Well-appearing, well-nourished and in no acute distress. HEAD: Atraumatic, normocephalic. EYES: Pupils equal round and reactive to light, extraocular movements intact, sclera anicteric, conjunctiva are normal. ENT: nares patent, oropharynx clear without exudates. Moist mucous membranes. NECK: Normal range of motion, supple without lymphadenopathy LUNGS: Breath sounds clear to auscultation bilaterally and equal. No wheezes rales or rhonchi. HEART: Regular rate and rhythm without murmurs ABDOMEN: Soft, nontender, normoactive bowel sounds. No guarding, no rebound. No masses appreciated. EXTREMITIES: Normal range of motion, no pitting or edema. No cyanosis. NEUROLOGICAL: Cranial nerves grossly intact. Normal speech, normal gait. Normal sensory and motor exams. PSYCH: Normal mood, normal affect. SKIN: Warm, Dry, normal turgor, no rashes or lesions noted. Course - Re-evaluation Re-evalutation: Patient appears very well. His abdomen is completely soft and nontender. Vital signs are normal. After Zofran, he feels much better and is drinking without any nausea or vomiting. Told patient that he needs to follow-up with his mental health providers at [facility] to discuss his bipolar medications. - Vital Signs Vital signs: Temp Pulse Resp BP Pulse Ox 98.7 F 60 18 133/70 H 99 01/29/18 01:09 01/29/18 01:09 01/29/18 01:09 01/29/18 01:09 01/29/18 01:09 Discharge - Discharge Clinical Impression: Nausea Condition: Stable Disposition: HOME, SELF-CARE Additional Instructions: VOMITING: Vomiting (or nausea without vomiting) can be caused by many other different problems. It can mean that something's wrong with the stomach, such as ulcers or inflammation or the intestinal tract, such as appendicitis. But it can also be a symptom of a problem that has nothing to do with the stomach or intestines. Vomiting is common with severe headaches, earaches, tonsillitis, and kidney infections, etc. We see it with pneumonia or heart attacks. Drugs can cause nausea and vomiting. Many abdominal problems cause vomiting; for example, gallstones, kidney stones, pancreatitis, and intestinal obstruction ( blocked bowels). In most cases, curing the vomiting depends on fixing the problem that caused it. For temporary relief, we may use an anti-nausea medicine. For home use, we can prescribe suppositories, chewable pills, pills that dissolve in the mouth, or liquid anti-nausea drugs. If the vomiting seems to be caused by a problem in the stomach, acid-suppressing drugs may be prescribed as well. It's important to avoid dehydration. Sip small amounts of clear liquids ( soft drinks, tea, broth, etc) . Try to take fluids frequently even if you are vomiting to prevent dehydration. Take increasing amounts of fluid and when liquids are being consumed successfully, advance to small amounts of bland food (toast, soups, mashed potatoes, etc.) until you are able to resume a regular diet. Avoid aspirin, tobacco, and alcohol. If the vomiting worsens, if the problem that's making you vomit worsens, or if there's evidence of bleeding in the stomach (such as black, tarry stool, or bloody or black vomit), you should return immediately. Also, return if abdominal pain worsens or becomes localized to one area or you develop high fever. Call your doctor if you aren't improved in 24 hours. ANTINAUSEA MEDICATION: You have been given a medication to suppress nausea and vomiting. This type of medication can be given as a shot, pill, or suppository. It will usually last for many hours. Pills and shots usually last six to eight hours. For the typical illness, only one or two doses of the medication may be necessary. Mild lightheadedness may occur. This type of medicine can cause drowsiness. Do not drive or operate dangerous machinery while under its influence. Do not mix with alcohol. See your doctor at once if you have muscle spasms or tightness, or uncontrollable motions (particularly of the neck, mouth, or jaw). Persistent vomiting or severe lightheadedness should also be evaluated by the physician. FOLLOW-UP CARE: If you have been referred to a physician for follow-up care, call the physician s office for an appointment as you were instructed or within the next two days. If you experience worsening or a significant change in your symptoms, notify the physician immediately or return to the Emergency Department at any time for re-evaluation. Prescriptions: Ondansetron [Zofran Odt 4 mg Tablet] 1 - 2 tab PO Q4H PRN #10 tab.rapdis PRN Reason: For Nausea/Vomiting Forms: Elevated Blood Pressure Referrals: [facility] [Outside] - [facility] - Follow up as needed
== END 2018-01-29 02:30 | disposition home or self-care (01) ==
LOC: ER 01:04
DX: R11.0 Nausea (principal); Z87.19 Personal history of other diseases of the digestive system
CPT/HCPCS: 99283; S0119

== ENCOUNTER 2018-05-03 12:54 | Emergency (ER) | payer MEDICAID ==
--- NOTE | 2018-05-03 13:16 | ER Document Report ---
ED Psych Disorder / Suicide - General TRAVEL OUTSIDE OF THE [place] IN LAST 30 DAYS: No <HERMANN SMITH - Last Filed: 05/03/18 19:27> <TORI STRONG - Last Filed: 05/04/18 09:03> <ELHAM ORONA - Last Filed: 05/04/18 10:07> - General Chief Complaint: Psych Problem Stated Complaint: PSYCH PROBLEM Time Seen by Provider: 05/03/18 13:01 Notes: Presents actively psychotic, confused, making statements that do not make sense. When asked why he is here, patient says he "can't feel shit". Then, patient will not answer any questions or follow any commands. Immediately upon his being brought to the room, he began acting as if he might try to escape. He was placed in restraints. Patient unable to provide any other helpful history. Reviewing the patient's past visits show that he was here 3 times in 2016, and once in 2017, for psychiatric problems, but no other visits for psychiatric conditions. (HERMANN SMITH) - Related Data Allergies/Adverse Reactions: No Known Allergies Allergy (Verified 05/09/17 16:32) Past Medical History - Social History Smoking Status: Unknown if Ever Smoked Family History: None, Reviewed & Not Pertinent Patient has suicidal ideation: No Patient has homicidal ideation: No Psychiatric Medical History: Reports: Hx Bipolar Disorder Traumatic Medical History: Reports: Hx Pneumothorax - Immunizations Immunizations up to date: Yes Hx Diphtheria, Pertussis, Tetanus Vaccination: Yes <HERMANN SMITH - Last Filed: 05/03/18 19:27> Review of Systems - Review of Systems -: Yes ROS unobtainable due to patient's medical condition <HERMANN SMITH - Last Filed: 05/03/18 19:27> Physical Exam - Vital signs Interpretation: Hypertensive - Mild <HERMANN SMITH - Last Filed: 05/03/18 19:27> <TORI STRONG - Last Filed: 05/04/18 09:03> <ELHAM ORONA - Last Filed: 05/04/18 10:07> - Vital signs Vitals: Temp Pulse Resp BP Pulse Ox 98.8 F 73 20 173/94 H 100 05/03/18 12:58 05/03/18 12:58 05/03/18 12:58 05/03/18 12:58 05/03/18 12:58 - Notes Notes: PHYSICAL EXAMINATION: GENERAL: Well-appearing, in no acute distress. Conversation is mixed, without focus, does not make sense most of the time. Currently in four-point restraints. HEAD: Atraumatic, normocephalic. EYES: Pupils equal round and reactive to light, extraocular movements intact. NECK: Normal range of motion, supple. LUNGS: Breath sounds clear and equal bilaterally. HEART: Regular rate and rhythm without murmurs. ABDOMEN: Soft, nontender. No guarding or rebound. No masses. BACK: No tenderness throughout entire back. EXTREMITIES: Normal range of motion without pain. NEUROLOGICAL: Abnormal speech, actively psychotic. Grossly normal sensory, motor, and reflex exams. Awake, alert, but not oriented x3. Cranial nerves normal. PSYCH: Confused speech, actively psychotic. SKIN: Warm, dry, no rashes. (HERMANN SMITH) Course - Laboratory Result Diagrams: 05/03/18 13:03 05/03/18 13:03 - EKG Interpretation by Ma EKG shows normal: Sinus rhythm Rate: Normal Rhythm: NSR Voltage: Consistant with LVH <HERMANN SMITH - Last Filed: 05/03/18 19:27> - Laboratory Result Diagrams: 05/03/18 13:03 05/03/18 13:03 <TORI STRONG - Last Filed: 05/04/18 09:03> - Laboratory Result Diagrams: 05/03/18 13:03 05/03/18 13:03 <ELHAM ORONA - Last Filed: 05/04/18 10:07> - Re-evaluation Re-evalutation: 05/03/18 18:50 Psych consult obtained and patient will be involuntarily committed. 05/03/18 19:26 Lab studies all essentially normal except for very minimal elevation of bilirubin and positive for cocaine on drug screen. (HERMANN SMITH) - Vital Signs Vital signs: Temp Pulse Resp BP Pulse Ox 98.8 F 73 20 173/94 H 100 05/03/18 12:58 05/03/18 12:58 05/03/18 12:58 05/03/18 12:58 05/03/18 12:58 - Laboratory Laboratory results interpreted by me: 05/03/18 05/03/18 13:03 14:25 Total Bilirubin 2.8 H Direct Bilirubin 0.6 H Urine Ketones 20 H Urine Urobilinogen 2.0 H Salicylates < 1.0 L Acetaminophen < 10 L Discharge <HERMANN SMITH - Last Filed: 05/03/18 19:27> <TORI STRONG - Last Filed: 05/04/18 09:03> <ELHAM ORONA - Last Filed: 05/04/18 10:07> - Discharge Clinical Impression: Acute psychosis, Substance abuse Condition: Stable Disposition: HOME, SELF-CARE Additional Instructions: You have been evaluated by medical and behavioral health teams and if deemed appropriate for discharge. You are highly encouraged to abstain from using cocaine. You have been provided resources for substance abuse treatment both inpatient and outpatient. Is recommended you follow-up with [facility] in 3-5 days for both substance and mental health treatment. COCAINE ABUSE: Cocaine causes many dangerous medical problems. Problems can occur even with "usual" amounts. Cocaine affects judgement, creating a sense of invulnerability. Cocaine users often make bad decisions that seem "great" at the time. Most cocaine users eventually will be hurt by bad job performance, damaged personal relations, crime, and unsafe sexual practices. Toxic effects of cocaine can include seizures, hallucinations, delusions, high blood pressure, heart damage, or sudden . There's always the risk of a "bad batch." But heart attacks, brain hemorrhages, or cardiac arrest can occur unpredictably even with "normal" use. Injection of cocaine is risky for abscesses, endocarditis (heart infection) , pneumonia, and AIDS. Withdrawal from cocaine often causes anxiety and drug cravings. Some users become paranoid and psychotic. Many treatment programs are available, but you must make the decision to quit. Medication can be prescribed to control the symptoms of cocaine toxicity (beta blockers or benzodiazepines). Withdrawal symptoms may require tranquilizers. FOLLOW-UP CARE: If you experience worsening or a significant change in your symptoms, notify the physician immediately or return to the Emergency Department at any time for re-evaluation. Referrals: [facility] [Outside] - Follow up as needed [facility] [Outside] - Follow up in 3-5 days
[2018-05-03 13:19] LABS: ABSOLUTE EOSINOPHILS # (AUTO) 0.2 10^3/uL (0.0-0.6); ABSOLUTE MONOCYTES (AUTO) 0.6 10^3/uL (0.1-1.4); ABSOLUTE NEUT (AUTO) 3.1 10^3/uL (1.7-8.2); BASOPHILS % (AUTO) 0.7 % (0-2); HEMATOCRIT 39.1 % (37.9-51.0); HEMOGLOBIN 13.8 g/dL (13.5-17.0); LYMPHOCYTES % (AUTO) 33.1 % (13-45); MEAN CORPUSCULAR HEMOGLOBIN 30.8 pg (27.0-33.4); MEAN CORPUSCULAR HGB CONC 35.3 g/dL (32.0-36.0); MEAN CORPUSCULAR VOLUME 88 fl (80-97); MONOCYTES % (AUTO) 10.6 % (3-13); PLATELET COUNT 232 10^3/uL (150-450); RED BLOOD COUNT 4.47 10^6/uL (4.35-5.55); RED CELL DISTRIBUTION WIDTH 13.5 % (11.5-14.0); SEGMENTED NEUTROPHILS % (AUTO) 52.6 % (42-78); TOTAL CELLS COUNTED % (AUTO) 100 %
[2018-05-03] MEDS ORDERED: OLANZAPINE INJ/PF 10 MG SDV IM ONE (13:25)
[2018-05-03] MEDS ORDERED: BENZTROPINE MESYLATE INJ 2 MG/2 ML AMPULE IM SCH (13:30)
[2018-05-03 13:33] LABS: ALANINE AMINOTRANSFERASE 44 U/L (21-72); ALBUMIN 4.8 g/dL (3.5-5.0); ALKALINE PHOSPHATASE 57 U/L (38-126); ANION GAP 12 (5-19); ASPARTATE AMINO TRANSFERASE 51 U/L (17-59); BILIRUBIN,DIRECT 0.6 mg/dL (0.0-0.4); BILIRUBIN,TOTAL 2.8 mg/dL (0.2-1.3); BLOOD UREA NITROGEN 13 mg/dL (7-20); CALCIUM 9.9 mg/dL (8.4-10.2); CARBON DIOXIDE 24 mmol/L (22-30); CHLORIDE 104 mmol/L (98-107); GLUCOSE 93 mg/dL (75-110); POTASSIUM 3.9 mmol/L (3.6-5.0); SODIUM 140.4 mmol/L (137-145); TOTAL PROTEIN 7.9 g/dL (6.3-8.2)
[2018-05-03 13:35] LABS: ACETAMINOPHEN < 10 ug/mL (10-30); ALCOHOL < 10 mg/dL (NONE DETECTED); SALICYLATE < 1.0 mg/dL (2.0-20.0)
--- NOTE | 2018-05-03 14:00 | PSYCHOLOGICAL NOTE ---
Psych Note - Psych Note Psych Note: Reason for Consult: manic Pt presents to the ED with the [facility]'s Department. Pt is reported to have a mental behavior history who is non-compliant with his medication. Pt reports to have homicidal and suicidal ideation. Pt arrives to the ED mumbling and singing a rap song without pause. Pt is stating cuss words and "giving the finger to staff." Pt is placed in four-point restraints. Upon entering room, patient is observed being in 4pt restraints; patient asked "Do you remember me?" Clinician confirmed and asked if the patient remember the clinician, at which he responded "yes, you asked me a lot of questions last time." Patient denies any current illicit drug use; however, then stated that he uses drugs to feel emotions and that "this is me off of drugs... No emotions... Drugs make me normal." Patient then started to speak about wanting to kill people but then stated "but no women or children or civilians." At this point patient dissolved into what appeared to be a rap song. Patient then asked for ice cream when it was it was explained he could not have ice cream at this time he stated "I always come at the wrong time." Patient then stated he was going to kill, when asked who he wanted to kill, the patient denied making any statements of wanting to kill anyone; "you are trying to say I have homicidal ideation...you are putting words in my mouth..." Patient is alert. Patient is currently manic with congruent affect. He verbalizes homicidal ideation stating that he wants to kill. thought processes consist of flight of thought. Eye contact is fair. Conversational speech originally starts out with normal rate tone and prosody then deteriorates into rhyming and singing rap songs. Attention and concentration are poor. Insight, judgment, impulse control is poor. Medication recommendations per [facility]'s contracted psychiatrist Dr. Nilo CARRINGTON are sounds Zyprexa 10 mg IM once Zyprexa 5 mg IM twice daily Cogentin 1 mg IM daily 292.9 (F19.99) unspecified or unknown substance related disorder per history Impression/plan: Patient is recommended to continue under IVC. Patient demonstrates flight of thought, singing and rhyming his speech, and disorganized thoughts. Patient verbalizes wanting to kill people "but no women or children...or civilians." Patient is currently manic and has required 4pt restraints for his protection and the protection of [facility] staff. Dr. Morse was consulted on the care and management of this patient;attending physician is in agreement with recommendations and disposition.
[2018-05-03 14:54] LABS: APPEARANCE,URINE CLEAR; BILIRUBIN,URINE NEGATIVE (NEGATIVE); COLOR,URINE YELLOW; GLUCOSE, URINE NEGATIVE (NEGATIVE); KETONES,URINE 20 mg/dL (NEGATIVE); LEUKOCYTE ESTERASE,URINE NEGATIVE (NEGATIVE); NITRITE,URINE NEGATIVE (NEGATIVE); PROTEIN,URINE NEGATIVE (NEGATIVE); URINE SPECIFIC GRAVITY 1.025
[2018-05-03 15:09] LABS: URINE AMPHETAMINES SCREEN NEGATIVE; URINE BARBITURATES SCREEN NEGATIVE; URINE BENZODIAZEPINES SCREEN NEGATIVE; URINE COCAINE SCREEN UNCONFIRMED POSITIVE; URINE MARIJUANA (THC) SCREEN UNCONFIRMED POSITIVE; URINE METHADONE SCREEN NEGATIVE; URINE PHENCYCLIDINE SCREEN NEGATIVE
[2018-05-03] MEDS ORDERED: OLANZAPINE INJ/PF 10 MG SDV IM SCH (18:00)
--- NOTE | 2018-05-03 20:24 | EKG REPORT ---
SEVERITY:- ABNORMAL ECG - SINUS RHYTHM PROBABLE LEFT ATRIAL ABNORMALITY PROBABLE LEFT VENTRICULAR HYPERTROPHY : Confirmed by: Jb Feldman 03-May-2018 20:23:22
--- NOTE | 2018-05-04 09:32 | ER Document Report ---
Doctor's Note Notes: As the rounding physician this AM, I assessed the patient's labs, vitals, and records. No concerning findings this morning. Patient denies any acute complaints. This morning patient is now out of restraints. Cooperative. No home-going medications are recommended by psych. They believe the psychosis that he was displaying yesterday was due to the cocaine he was using. PHYSICAL EXAMINATION: GENERAL: Well-appearing, well-nourished and in no acute distress. HEAD: Atraumatic, normocephalic. EYES: Pupils equal round extraocular movements intact, conjunctiva are normal. ENT: Nares patent NECK: Normal range of motion LUNGS: No respiratory distress Musculoskeletal: Normal range of motion NEUROLOGICAL: Normal speech, normal gait. PSYCH: Normal mood, normal affect. SKIN: Warm, Dry, normal turgor, no rashes or lesions noted. 05/04/18 09:32 Medication recommendations per [facility]'s contracted psychiatrist Dr. Nilo CARRINGTON are sounds Zyprexa 10 mg IM once Zyprexa 5 mg IM twice daily Cogentin 1 mg IM daily 292.9 (F19.99) unspecified or unknown substance related disorder per history Impression/plan: Patient is recommended to continue under IVC. Patient demonstrates flight of thought, singing and rhyming his speech, and disorganized thoughts. Patient verbalizes wanting to kill people "but no women or children...or civilians." Patient is currently manic and has required 4pt restraints for his protection and the protection of [facility] staff. Dr. Morse was consulted on the care and management of this patient;attending physician is in agreement with recommendations and disposition. 05/04/18 10:05
--- NOTE | 2018-05-04 09:59 | PSYCHOLOGICAL NOTE ---
Psych Note - Psych Note Psych Note: Reason for Consult: manic Pt presents to the ED with the [facility]'s Department. Pt is reported to have a mental behavior history who is non-compliant with his medication. Pt reports to have homicidal and suicidal ideation. Pt arrives to the ED mumbling and singing a rap song without pause. Pt is stating cuss words and "giving the finger to staff." Pt is placed in four-point restraints. Check in conducted with patient Patient was completely appropriate with clinician. He discussed concerns about possible medical need. He states that every time he is in between talking with girls before he starts "talking" with another girl he gets tested. The last time he was tested it was found that he had contracted something and was given medications. He reports he is never taken because he is never had an outbreak however was worried he had a wrong and was supposed to take something so he did not have an outbreak. Patient reports he really does not want to have an outbreak so wants to know what to do. Patient denies wanting to harm anyone or himself. He asked for permission to groom himself i.e. shower. Clinician spoke with patient about sobriety however patient reports he will take the information but did not feel very concerned about sobriety. 292.9 (F19.99) unspecified or unknown substance related disorder per history Impression/plan: Patient is recommended to rescind IVC and is cleared from acute psychiatric services. Patient is no longer under the influences acting completely appropriate with clinician in [facility] staff. Patient denies thoughts of wanting to harm himself or others. Patient has been provided information on sobriety and highly encouraged to abstain from illegal substance use. Dr. Morse was consulted on the care and management of this patient;attending physician is in agreement with recommendations and disposition.
[2018-05-04] MEDS ORDERED: OLANZAPINE 5 MG TABLET PO ONE (10:07)
[2018-05-04 10:33] VITALS: BP 146/76
== END 2018-05-04 10:33 | disposition home or self-care (01) ==
LOC: ER 12:54
DX: F23 Brief psychotic disorder (principal); F19.10 Other psychoactive substance abuse, uncomplicated
CPT/HCPCS: 93005; 99285; 36415; 80307 ×4; 85025; 80053; 81001; 93010; J0515

== ENCOUNTER 2018-05-07 19:07 | Emergency (ER) | payer OTHER, MEDICAID ==
--- NOTE | 2018-05-07 19:24 | ER Document Report ---
ED General - General Stated Complaint: PSYCH EVAL Time Seen by Provider: 05/07/18 19:13 TRAVEL OUTSIDE OF THE [place] IN LAST 30 DAYS: No - HPI Notes: Patient is a 22-year-old male that presents to the emergency department for chief complaint of hallucinations. Patient has schizophrenia and is currently not on any medications. He was seen in the emergency room 3 days ago for increased visual hallucinations. Family states since he has been home he has been getting worse. They report he is violent and verbally combative. Patient appears to be hallucinating. He will not follow commands. They denied any physical altercation to EMS. HPI is limited because of patient's mental status and no family present Past Medical History: Schizophrenia Past Surgical History: reviewed in chart Social History: Reviewed in chart Family History: Reviewed and noncontributory for presenting illness Allergies: Reviewed, see documented allergy list. REVIEW OF SYSTEMS: Unable to obtain because of current mental status PHYSICAL EXAMINATION: Vital signs reviewed, nursing noted reviewed. GENERAL: Well-appearing, well-nourished and in no acute distress. HEAD: Atraumatic, normocephalic. EYES: Eyes appear normal, extraocular movements intact, sclera anicteric, conjunctiva are normal. ENT: nares patent, oropharynx clear without exudates. Moist mucous membranes. NECK: Normal range of motion, supple without lymphadenopathy LUNGS: Breath sounds clear to auscultation bilaterally and equal. No wheezes rales or rhonchi. HEART: Regular rate and rhythm without murmurs ABDOMEN: Soft, nontender, normoactive bowel sounds. No rebound, guarding, or rigidity. No masses appreciated. EXTREMITIES: Nontender, good range of motion, no pitting or edema. NEUROLOGICAL: No focal neurological deficits. Moves all extremities spontaneously Motor and sensory grossly intact on exam. PSYCH: Flight of ideas, tangential thoughts, hyper active SKIN: Warm, Dry, normal turgor, no rashes or lesions noted on exposed skin - Related Data Allergies/Adverse Reactions: No Known Allergies Allergy (Verified 05/09/17 16:32) Past Medical History - Social History Smoking Status: Unknown if Ever Smoked Family History: None, Reviewed & Not Pertinent Renal/ Medical History: Denies: Hx Peritoneal Dialysis Psychiatric Medical History: Reports: Hx Bipolar Disorder Traumatic Medical History: Reports: Hx Pneumothorax - Immunizations Immunizations up to date: Yes Hx Diphtheria, Pertussis, Tetanus Vaccination: Yes Review of Systems - Review of Systems Notes: Dictated Physical Exam - Vital signs Vitals: Temp Pulse Resp BP Pulse Ox 99.5 F 89 18 141/85 H 96 05/07/18 19:13 05/07/18 19:13 05/07/18 19:13 05/07/18 19:13 05/07/18 19:13 - Notes Notes: Dictated Course - Re-evaluation Re-evalutation: 05/07/18 19:23 Vitals reviewed. Nursing notes reviewed. Patient is not combative with PD, EMS or nursing staff. He is not following commands and is speaking in tangential thoughts. He appears to be internally stimulated. Patient is not currently capable of making medical decisions or understanding his medical needs. Lab work obtained for medical psych clearance. 05/07/18 21:07 Patient became violent and was attempting to hurt staff and leave the facility. He was given IM Geodon for his acute psychosis which improved symptoms. Lab work is unremarkable. EKG shows no ischemia. He is medically cleared for psych eval. final disposition pending psychiatric evaluation, plan for admission for elevating acute psychosis if patient's condition Laboratory 05/07/18 05/07/18 19:20 19:20 WBC 11.0 H RBC 4.66 Hgb 13.9 Hct 40.8 MCV 88 MCH 29.9 MCHC 34.1 RDW 13.2 Plt Count 217 Seg Neutrophils % 81.4 H Lymphocytes % 7.9 L Monocytes % 9.1 Eosinophils % 1.5 Basophils % 0.1 Absolute Neutrophils 9.0 H Absolute Lymphocytes 0.9 Absolute Monocytes 1.0 Absolute Eosinophils 0.2 Absolute Basophils 0.0 Sodium 138.9 Potassium 4.2 Chloride 102 Carbon Dioxide 26 Anion Gap 11 BUN 17 Creatinine 1.15 Est GFR ( Amer) > 60 Est GFR (Non-Af Amer) > 60 Glucose 92 Calcium 10.3 H Total Bilirubin 2.6 H Direct Bilirubin 0.7 H Neonat Total Bilirubin Not Reportable Neonat Direct Bilirubin Not Reportable Neonat Indirect Bili Not Reportable AST 69 H ALT 42 Alkaline Phosphatase 59 Total Protein 7.7 Albumin 4.7 Salicylates < 1.0 L Acetaminophen < 10 L Serum Alcohol < 10 is not improving. - Vital Signs Vital signs: Temp Pulse Resp BP Pulse Ox 99.5 F 89 18 141/85 H 96 05/07/18 19:13 05/07/18 19:13 05/07/18 19:13 05/07/18 19:13 05/07/18 19:13 - Laboratory Result Diagrams: 05/07/18 19:20 05/07/18 19:20 Laboratory results interpreted by me: 05/07/18 05/07/18 19:20 19:20 WBC 11.0 H Seg Neutrophils % 81.4 H Lymphocytes % 7.9 L Absolute Neutrophils 9.0 H Calcium 10.3 H Total Bilirubin 2.6 H Direct Bilirubin 0.7 H AST 69 H Salicylates < 1.0 L Acetaminophen < 10 L - EKG Interpretation by Me Additional EKG results interpreted by me: 05/07/18 21:07 1925: Normal sinus rhythm, rate 89, normal axis, no ectopy, no ST elevation Discharge - Discharge Clinical Impression: Acute psychosis Condition: Stable
[2018-05-07 19:37] LABS: ABSOLUTE EOSINOPHILS # (AUTO) 0.2 10^3/uL (0.0-0.6); ABSOLUTE LYMPHOCYTES (AUTO) 0.9 10^3/uL (0.5-4.7); BASOPHILS % (AUTO) 0.1 % (0-2); EOSINOPHILS % (AUTO) 1.5 % (0-6); HEMATOCRIT 40.8 % (37.9-51.0); HEMOGLOBIN 13.9 g/dL (13.5-17.0); LYMPHOCYTES % (AUTO) 7.9 % (13-45); MEAN CORPUSCULAR HEMOGLOBIN 29.9 pg (27.0-33.4); MEAN CORPUSCULAR HGB CONC 34.1 g/dL (32.0-36.0); MEAN CORPUSCULAR VOLUME 88 fl (80-97); MONOCYTES % (AUTO) 9.1 % (3-13); PLATELET COUNT 217 10^3/uL (150-450); RED BLOOD COUNT 4.66 10^6/uL (4.35-5.55); RED CELL DISTRIBUTION WIDTH 13.2 % (11.5-14.0); SEGMENTED NEUTROPHILS % (AUTO) 81.4 % (42-78); TOTAL CELLS COUNTED % (AUTO) 100 %
[2018-05-07 19:51] LABS: ACETAMINOPHEN < 10 ug/mL (10-30); ALANINE AMINOTRANSFERASE 42 U/L (21-72); ALBUMIN 4.7 g/dL (3.5-5.0); ALCOHOL < 10 mg/dL (NONE DETECTED); ALKALINE PHOSPHATASE 59 U/L (38-126); ANION GAP 11 (5-19); ASPARTATE AMINO TRANSFERASE 69 U/L (17-59); BILIRUBIN,DIRECT 0.7 mg/dL (0.0-0.4); BILIRUBIN,TOTAL 2.6 mg/dL (0.2-1.3); BLOOD UREA NITROGEN 17 mg/dL (7-20); CALCIUM 10.3 mg/dL (8.4-10.2); CARBON DIOXIDE 26 mmol/L (22-30); CHLORIDE 102 mmol/L (98-107); GLUCOSE 92 mg/dL (75-110); POTASSIUM 4.2 mmol/L (3.6-5.0); SALICYLATE < 1.0 mg/dL (2.0-20.0); SODIUM 138.9 mmol/L (137-145); TOTAL PROTEIN 7.7 g/dL (6.3-8.2)
[2018-05-07] MEDS ORDERED: ZIPRASIDONE MESYLATE INJ/PF 20 MG SDV IM ONE (19:57)
[2018-05-08] MEDS ORDERED: ZIPRASIDONE MESYLATE INJ/PF 20 MG SDV IM ONE (02:05)
--- NOTE | 2018-05-08 08:15 | EKG REPORT ---
SEVERITY:- NORMAL ECG - SINUS RHYTHM : Confirmed by: Jesi Hutchinson MD 08-May-2018 08:14:28
[2018-05-08 09:35] LABS: APPEARANCE,URINE CLEAR; BILIRUBIN,URINE NEGATIVE (NEGATIVE); COLOR,URINE YELLOW; GLUCOSE, URINE 50 mg/dL (NEGATIVE); KETONES,URINE 100 mg/dL (NEGATIVE); LEUKOCYTE ESTERASE,URINE TRACE (NEGATIVE); NITRITE,URINE NEGATIVE (NEGATIVE); PROTEIN,URINE NEGATIVE (NEGATIVE); UROBILINOGEN,URINE NEGATIVE mg/dL (<2.0)
[2018-05-08 09:36] LABS: URINE SPECIFIC GRAVITY 1.016
[2018-05-08 10:00] LABS: URINE AMPHETAMINES SCREEN NEGATIVE; URINE BARBITURATES SCREEN NEGATIVE; URINE BENZODIAZEPINES SCREEN NEGATIVE; URINE COCAINE SCREEN NEGATIVE; URINE MARIJUANA (THC) SCREEN UNCONFIRMED POSITIVE; URINE METHADONE SCREEN NEGATIVE; URINE PHENCYCLIDINE SCREEN NEGATIVE
--- NOTE | 2018-05-08 10:50 | ER Document Report ---
Doctor's Note Notes: 05/08/18 10:46 Medical Rounds: Patient is sitting at the end of the bed. Denies use of cocaine further stating he does not remember the last time he has used. States he would like to go home. Patient has disorganized thoughts and psychomotor agitation. Gives permission to contact parents. GENERAL: Alert. No acute distress. HEAD: Normocephalic, atraumatic. NECK: Full range of motion. Supple. Trachea midline. LUNGS: Clear to auscultation bilaterally, no wheezes, rales, or rhonchi. No respiratory distress. HEART: Regular rate and rhythm. No murmurs, gallops, or rubs. EXTREMITIES: Moves all 4 extremities spontaneously. NEUROLOGICAL: Alert and oriented x3. Normal speech. PSYCH: Disorganized thoughts, psychomotor agitation. 05/08/18 15:46 Patient is accepted as inpatient at [facility]. [facility]'s Department is here for transport. (DONNA MCGRATH)
[2018-05-08] MEDS ORDERED: HALOPERIDOL LACTATE INJ 5 MG/1 ML VIAL IM ONE (11:42)
[2018-05-08] MEDS ORDERED: BENZTROPINE MESYLATE INJ 2 MG/2 ML AMPULE IM ONE (11:43)
[2018-05-08 14:41] VITALS: BP 118/60
--- NOTE | 2018-05-08 14:51 | PSYCHOLOGICAL NOTE ---
Psych Note - Psych Note Psych Note: Reason for Consult: psychosis Patient is a 22-year-old male that presents to the emergency department for chief complaint of hallucinations. Clinician conducted initial evaluation with ED attending physician. Patient is noted to have difficulty staying on topic and answering questions. He is noted have poor eye contact, significant psychomotor agitation which include snapping , clapping, using hand gestures, and facial gestures. Patient's mood is elevated. Patient is observed to be singing and at times rhyming or sings answers. Impression/plan: Patient is recommended to continue under IVC. Patient is demonstrating behaviours indicating he is responding to internal stimuli and is acutely psychotic. Patient has been accepted to [facility]; transportation has been requested. Dr. Morse was consulted on the care and management of this patient ; attending physician is agreement with recommendations and disposition.
== END 2018-05-08 15:46 ==
LOC: ER 19:07
DX: F23 Brief psychotic disorder (principal); R45.6 Violent behavior
CPT/HCPCS: 93005; 99285; 96372; 36415; 80307 ×4; 85025; 80053; 81001; 93010; J0515; J1630; J3486 ×2

== ENCOUNTER 2018-12-08 10:02 | Emergency (ER) | payer MEDICAID, OTHER ==
--- NOTE | 2018-12-08 10:17 | ER Document Report ---
ED General - General Stated Complaint: PSYCH Time Seen by Provider: 12/08/18 10:17 Notes: Patient is a 23-year-old male that presents to the emergency department for chi ef complaint of agitated behavior. Patient apparently was standing in front yard for a few hours, seemingly acting odd, and was agitated, EMS was called, and because the patient agitated behavior he was given 5 mg of Haldol, 25 mg of Benadryl, and 2.5 mg of Versed. At this time the patient is somnolent, breathing spontaneously, but is rather drowsy, not able to provide any further history at this time, will reevaluate patient is more alert. His sensation appears to be intact grossly as the patient does withdrawal purposely with noxious stimuli to each limb. Patient apparently has a history of psychiatric disorder per report, and has been presented to this emergency department several times in the past, with active delirium, agitation and combative behavior. Past Medical History: Schizophrenia Past Surgical History: Reviewed in the chart Social History: Reviewed in the chart. Family History: Not obtainable at this time Allergies: Reviewed, see documented allergy list. REVIEW OF SYSTEMS: Other than noted above, the 12 point review of systems was reviewed with the patient and were negative, all pertinent findings are included in the HPI. PHYSICAL EXAMINATION: Vital signs reviewed, nursing noted reviewed. GENERAL: Somnolent, arousable with noxious stimuli HEAD: Atraumatic, normocephalic. EYES: Eyes appear normal, extraocular movements intact, sclera anicteric, conjunctiva are normal. PERRLA ENT: nares patent. Moist mucous membranes. NECK: Normal range of motion, supple without lymphadenopathy LUNGS: Breath sounds clear to auscultation bilaterally and equal. No wheezes rales or rhonchi. HEART: Regular rate and rhythm without murmurs, pulses equal bilaterally in all extremities ABDOMEN: Soft, not apparently tender, normoactive bowel sounds. No rebound, g uarding, or rigidity. No masses appreciated. EXTREMITIES: Nontender, good range of motion, no pitting or edema. NEUROLOGICAL: No focal neurological deficits. Moves all extremities spontaneously Motor and sensory grossly intact on exam. PSYCH: Somnolent SKIN: Warm, Dry, normal turgor, no rashes or lesions noted on exposed skin TRAVEL OUTSIDE OF THE [place] IN LAST 30 DAYS: No - Related Data Allergies/Adverse Reactions: No Known Allergies Allergy (Verified 12/08/18 10:22) Past Medical History - Social History Smoking Status: Former Smoker Family History: None, Reviewed & Not Pertinent Renal/ Medical History: Denies: Hx Peritoneal Dialysis Psychiatric Medical History: Reports: Hx Bipolar Disorder Traumatic Medical History: Reports: Hx Pneumothorax - Immunizations Immunizations up to date: Yes Hx Diphtheria, Pertussis, Tetanus Vaccination: Yes Physical Exam - Vital signs Vitals: Pulse Resp BP Pulse Ox 71 14 134/66 H 100 12/08/18 10:17 12/08/18 10:17 12/08/18 10:17 12/08/18 10:17 Course - Re-evaluation Re-evalutation: Patient seen and examined, vital signs reviewed. Medical screening testing was ordered including bloodwork, EKG, and toxicology. Results of testing were reviewed. Testing demonstrated hyperbilirubinemia, this appears to be chronic for this patient, likely has a history of [place] disease. Patient has been stable from a hemodynamic standpoint. At this point I feel that the patient is medically cleared and can be further evaluated from a psychiatric standpoint for final disposition from the emergency department. 24-hour IVC paperwork was placed for this patient. Plan for reevaluation in the morning. Laboratory 12/08/18 12/08/18 10:15 10:15 WBC 5.1 RBC 4.94 Hgb 14.4 Hct 43.2 MCV 87 MCH 29.2 MCHC 33.5 RDW 14.1 H Plt Count 241 Seg Neutrophils % 57.1 Lymphocytes % 29.8 Monocytes % 9.8 Eosinophils % 2.8 Basophils % 0.5 Absolute Neutrophils 2.9 Absolute Lymphocytes 1.5 Absolute Monocytes 0.5 Absolute Eosinophils 0.1 Absolute Basophils 0.0 Sodium 142.1 Potassium 4.3 Chloride 103 Carbon Dioxide 26 Anion Gap 13 BUN 18 Creatinine 1.19 Est GFR ( Amer) > 60 Est GFR (Non-Af Amer) > 60 Glucose 91 Calcium 10.5 H Total Bilirubin 3.6 H Direct Bilirubin 0.4 Neonat Total Bilirubin Not Reportable Neonat Direct Bilirubin Not Reportable Neonat Indirect Bili Not Reportable AST 40 ALT 41 Alkaline Phosphatase 56 Total Protein 8.2 Albumin 4.9 Salicylates < 1.0 L Acetaminophen < 10 L Serum Alcohol < 10 - Vital Signs Vital signs: Temp Pulse Resp BP Pulse Ox 71 14 134/66 H 100 05/11/19 10:17 12/08/18 10:17 12/08/18 10:17 12/08/18 10:17 - Laboratory Result Diagrams: 12/08/18 10:15 12/08/18 10:15 Laboratory results interpreted by me: 12/08/18 12/08/18 10:15 10:15 RDW 14.1 H Calcium 10.5 H Total Bilirubin 3.6 H Salicylates < 1.0 L Acetaminophen < 10 L - EKG Interpretation by Me Additional EKG results interpreted by me: EKG demonstrates sinus rhythm with a ventricular rate of 73 bpm, normal axis, normal intervals, biphasic T waves noted in V3, V4 and V5, this appears to have been present on his prior EKG from 05/07/2018. Discharge - Discharge Clinical Impression: Combative behavior Condition: Stable Disposition: PSYCH HOSP/UNIT
[2018-12-08 10:31] LABS: ABSOLUTE EOSINOPHILS # (AUTO) 0.1 10^3/uL (0.0-0.6); ABSOLUTE LYMPHOCYTES (AUTO) 1.5 10^3/uL (0.5-4.7); ABSOLUTE MONOCYTES (AUTO) 0.5 10^3/uL (0.1-1.4); ABSOLUTE NEUT (AUTO) 2.9 10^3/uL (1.7-8.2); BASOPHILS % (AUTO) 0.5 % (0-2); EOSINOPHILS % (AUTO) 2.8 % (0-6); HEMATOCRIT 43.2 % (37.9-51.0); HEMOGLOBIN 14.4 g/dL (13.5-17.0); LYMPHOCYTES % (AUTO) 29.8 % (13-45); MEAN CORPUSCULAR HEMOGLOBIN 29.2 pg (27.0-33.4); MEAN CORPUSCULAR HGB CONC 33.5 g/dL (32.0-36.0); MEAN CORPUSCULAR VOLUME 87 fl (80-97); MONOCYTES % (AUTO) 9.8 % (3-13); PLATELET COUNT 241 10^3/uL (150-450); RED BLOOD COUNT 4.94 10^6/uL (4.35-5.55); RED CELL DISTRIBUTION WIDTH 14.1 % (11.5-14.0); SEGMENTED NEUTROPHILS % (AUTO) 57.1 % (42-78); TOTAL CELLS COUNTED % (AUTO) 100 %; WHITE BLOOD COUNT 5.1 10^3/uL (4.0-10.5)
[2018-12-08 10:55] LABS: ALANINE AMINOTRANSFERASE 41 U/L (21-72); ALBUMIN 4.9 g/dL (3.5-5.0); ALKALINE PHOSPHATASE 56 U/L (38-126); ANION GAP 13 (5-19); ASPARTATE AMINO TRANSFERASE 40 U/L (17-59); BILIRUBIN,DIRECT 0.4 mg/dL (0.0-0.4); BILIRUBIN,TOTAL 3.6 mg/dL (0.2-1.3); BLOOD UREA NITROGEN 18 mg/dL (7-20); CALCIUM 10.5 mg/dL (8.4-10.2); CARBON DIOXIDE 26 mmol/L (22-30); CHLORIDE 103 mmol/L (98-107); GLUCOSE 91 mg/dL (75-110); POTASSIUM 4.3 mmol/L (3.6-5.0); SODIUM 142.1 mmol/L (137-145); TOTAL PROTEIN 8.2 g/dL (6.3-8.2)
[2018-12-08 10:57] LABS: ACETAMINOPHEN < 10 ug/mL (10-30); ALCOHOL < 10 mg/dL (NONE DETECTED); SALICYLATE < 1.0 mg/dL (2.0-20.0)
--- NOTE | 2018-12-08 11:52 | PSYCHOLOGICAL NOTE ---
Psych Note - Psych Note Date seen by psych provider: 12/08/18 Time seen by psych provider: 10:35 Psych Note: Reason for Consult: AMS Pt to Ed via EMS for psych eval, EMS reports parents called s/t pt was found standing in yard x 2 hours this AM with blank stare. EMS reports pt was aware of them, bu refused to say anything, they reported tars in his eyes. EMs states pt became aggressive en route and they gave haldol, benadryl, and versed. Pt arrived sleeping, arousable to touch, falls asleep immediately after arousing. EMS reports hx of psych and substance abuse. Patient is unable to engage in evaluation. Patient has a history of both mental health and substance abuse with presentations of altered mental status. IVC petition has been submitted for overnight mental health observation.
[2018-12-08] MEDS ORDERED: OLANZAPINE INJ/PF 10 MG SDV IM ONE (14:03)
[2018-12-08 15:35] LABS: APPEARANCE,URINE SLIGHTLY-CLOUDY; BILIRUBIN,URINE NEGATIVE (NEGATIVE); COLOR,URINE AMBER; GLUCOSE, URINE NEGATIVE (NEGATIVE); KETONES,URINE 80 mg/dL (NEGATIVE); LEUKOCYTE ESTERASE,URINE NEGATIVE (NEGATIVE); NITRITE,URINE NEGATIVE (NEGATIVE); PROTEIN,URINE 30 mg/dL (NEGATIVE); URINE SPECIFIC GRAVITY 1.034
[2018-12-08 15:46] LABS: URINE AMPHETAMINES SCREEN NEGATIVE; URINE BARBITURATES SCREEN NEGATIVE; URINE BENZODIAZEPINES SCREEN UNCONFIRMED POSITIVE; URINE COCAINE SCREEN NEGATIVE; URINE MARIJUANA (THC) SCREEN UNCONFIRMED POSITIVE; URINE METHADONE SCREEN NEGATIVE; URINE PHENCYCLIDINE SCREEN NEGATIVE
[2018-12-08] MEDS: OLANZAPINE 5 MG TABLET PO SCH (17:55)
[2018-12-08] MEDS ORDERED: BENZTROPINE MESYLATE 1 MG TABLET PO SCH (22:00)
--- NOTE | 2018-12-08 23:26 | EKG REPORT ---
SEVERITY:- BORDERLINE ECG - SINUS RHYTHM BORDERLINE T ABNORMALITIES, LATERAL LEADS : Confirmed by: Jesi Hutchinson MD 08-Dec-2018 23:25:19
--- NOTE | 2018-12-09 08:58 | PSYCHOLOGICAL NOTE ---
Psych Note - Psych Note Date seen by psych provider: 12/09/18 Time seen by psych provider: 44:85 - [id number] Psych Note: Reason for Consult: AMS Pt to Ed via EMS for psych eval, EMS reports parents called s/t pt was found standing in yard x 2 hours this AM with blank stare. EMS reports pt was aware of them, bu refused to say anything, they reported tars in his eyes. EMs states pt became aggressive en route and they gave haldol, benadryl, and versed. Pt arrived sleeping, arousable to touch, falls asleep immediately after arousing. EMS reports hx of psych and substance abuse. Checking conducted with patient Patient's mood is euthymic with congruent affect. He engages in organized and linear conversation. He continues to deny any drug use. When discussing psychiatric medications he discloses that he feels that he does not need them. 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 Because he would like to join the he will be unable to continue taking medications. Clinician provided psychoeducation on the importance of having an outpatient mental health provider to monitor progress. It was also discussed that if the patient is not using any substances to alter his mental status, he may need to realistically think about the need for medications to maintain stability; This would have the probability of being lifelong. 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 Patient still expresses significant reluctance in long-term medication management. He confirms he will take the prescription and states he understands the need for an outpatient mental health provider to discuss further plan of care and monitoring. Patient denies any thoughts of wanting to harm himself or others and denies hallucinations. Eye contact is well-maintained. Medication recommendations per [facility]'s contracted psychiatrist Dr. Nilo CARRINGTON are sounds Zyprexa 5 mg IM twice daily Cogentin 1 mg IM daily 292.9 (F19.99) unspecified or unknown substance related disorder per history R/O Unspecified psychosis; patient has a reported history of schizophrenia and currently denies substance use Impression\plan: Patient is cleared from acute psychiatric services. Patient no longer meets IVC criteria per [place] GS 120 2C. Patient is not demonstrating any behaviors of responding to internal stimuli i.e. good eye contact, organized linear thought processes and normal conversational speech. Patient denies thoughts of wanting to harm himself and others. Patient continues to deny any substance use that resulted in his presentation. Patient engaged in plan of c are discussion in regards to medication management and what he would like to do for long-term plans. Patient is provided outpatient mental health resource sheet and encouraged to obtain a mental health provider that can work with the patient to develop a long-term plan of care and monitor progress. Dr. Morse was consulted and the care management of this patient; attending physicians in agreement with recommendations and disposition.
[2018-12-09] MEDS: OLANZAPINE 5 MG TABLET PO SCH (09:53)
[2018-12-09 09:57] VITALS: BP 156/82
== END 2018-12-09 09:58 | disposition home or self-care (01) ==
LOC: ER 10:02
DX: F91.8 Other conduct disorders (principal); R45.1 Restlessness and agitation; F20.9 Schizophrenia, unspecified; Z79.899 Other long term (current) drug therapy; Z87.891 Personal history of nicotine dependence
CPT/HCPCS: 36415; 80053; 80307; 81001; 85025; 93005; 93010; 96372; 99285

== ENCOUNTER 2019-07-05 14:02 | Emergency (ER) | payer OTHER ==
[2019-07-05] MEDS ORDERED: CHLORPROMAZINE HCL INJ 25 MG/1 ML AMPULE IM ONE (14:15)
[2019-07-05] MEDS ORDERED: BENZTROPINE MESYLATE INJ 2 MG/2 ML AMPULE IM PRN (14:15)
--- NOTE | 2019-07-05 14:28 | ER Document Report ---
ED General - General Chief Complaint: Psych Problem Stated Complaint: IVC/PSYCH PROBLEM TRAVEL OUTSIDE OF THE [place] IN LAST 30 DAYS: No - HPI Notes: Patient is a 23-year-old male with a history of schizophrenia, not currently medicated, who presents in acute psychosis with visual, auditory hallucinations, nonlinear speech, and aggressive behavior. He does present on IVC paperwork by mobile crisis. The police department and mobile crisis were called out to the home where he was staying and he was noted to be very aggressive with people as well as the above-mentioned. He does not provide a good history, but he is known to this emergency department. He is currently being aggressive with staff members and is being put in restraints. He does not respond appropriately when asking about any drug use. Denies drug allergies. - Related Data Allergies/Adverse Reactions: No Known Allergies Allergy (Verified 12/08/18 10:22) Past Medical History - General Information source: Law Enforcement, [facility] Records Cannot obtain history due to: Altered mental status - Acute psychosis - Social History Smoking Status: Unknown if Ever Smoked Family History: None, Reviewed & Not Pertinent Renal/ Medical History: Denies: Hx Peritoneal Dialysis Psychiatric Medical History: Reports: Hx Bipolar Disorder, Hx Schizophrenia Traumatic Medical History: Reports: Hx Pneumothorax - Immunizations Immunizations up to date: Yes Hx Diphtheria, Pertussis, Tetanus Vaccination: Yes Review of Systems - Review of Systems -: Yes ROS unobtainable due to patient's medical condition Physical Exam - Notes Notes: PHYSICAL EXAMINATION: GENERAL: Well-appearing, well-nourished and in no acute distress. Alert and oriented to place. Tangential speech with nonlinear thinking. Patient is being aggressive with law enforcement as well as her security and he was placed in restraints. HEAD: Atraumatic, normocephalic. EYES: Pupils equal round and reactive to light, extraocular movements intact, sclera anicteric, conjunctiva are normal. He does have aged small area of ecchy mosis left eye. ENT: Nares patent and without discharge. oropharynx clear without exudates. No tonsilar hypertrophy or erythema. Moist mucous membranes. NECK: Normal range of motion, supple without lymphadenopathy LUNGS: Breath sounds clear to auscultation bilaterally and equal. No wheezes rales or rhonchi. HEART: Regular rate and rhythm without murmurs, rubs, gallops. ABDOMEN: Soft, nontender, nondistended abdomen. No guarding, no rebound. Normal bowel sounds present. No CVA tenderness bilaterally. Musculoskeletal: FROM to passive/active. Strength 5+/5. Extremities: No cyanosis, clubbing, or edema b/l. Peripheral pulses 2+. Capillary refill less than 3 seconds. NEUROLOGICAL: Cranial nerves grossly intact. PSYCH: acute psychosis, tangential speech, nonlinear thinking, poor eye contact SKIN: Warm, Dry, normal turgor, no rashes or lesions noted. Course - Re-evaluation Re-evalutation: 07/05/19 14:27 I did consult our MH team. We will be giving Thorazine and cogentin with scheduled meds thereafter. Pt presents on IVC for acute psychosis in the setting of noncompliance with meds for his schizophrenia. Vitals are otherwise acceptable. PE grossly unremarkable. Labs pending. Pt otherwise cleared for eval by our MH team. 07/05/19 15:12 Pt resting calmy at this time after meds. Labs unremarkable. We will try for Urine later. Pt otherwise medically cleared for eval. - Laboratory Result Diagrams: 07/05/19 14:14 07/05/19 14:14 Laboratory results interpreted by me: 07/05/19 07/05/19 14:14 14:14 [place] % (Auto) 16.1 H Calcium 10.5 H Total Bilirubin 2.6 H Total Protein 8.9 H Albumin 5.3 H Salicylates < 1.0 L Acetaminophen < 10 L Discharge - Discharge Clinical Impression: Acute psychosis Condition: Stable Disposition: PSYCH HOSP/UNIT
[2019-07-05 14:29] LABS: ABSOLUTE EOSINOPHILS # (AUTO) 0.2 10^3/uL (0.0-0.6); ABSOLUTE LYMPHOCYTES (AUTO) 1.8 10^3/uL (0.5-4.7); ABSOLUTE MONOCYTES (AUTO) 1.3 10^3/uL (0.1-1.4); ABSOLUTE NEUT (AUTO) 4.6 10^3/uL (1.7-8.2); BASOPHILS % (AUTO) 0.3 % (0-2); EOSINOPHILS % (AUTO) 1.9 % (0-6); HEMATOCRIT 47.1 % (37.9-51.0); HEMOGLOBIN 16.1 g/dL (13.5-17.0); MEAN CORPUSCULAR HEMOGLOBIN 30.2 pg (27.0-33.4); MEAN CORPUSCULAR HGB CONC 34.2 g/dL (32.0-36.0); MEAN CORPUSCULAR VOLUME 88 fl (80-97); MONOCYTES % (AUTO) 16.1 % (3-13); PLATELET COUNT 233 10^3/uL (150-450); RED BLOOD COUNT 5.34 10^6/uL (4.35-5.55); RED CELL DISTRIBUTION WIDTH 13.7 % (11.5-14.0); SEGMENTED NEUTROPHILS % (AUTO) 58.7 % (42-78); TOTAL CELLS COUNTED % (AUTO) 100 %; WHITE BLOOD COUNT 7.9 10^3/uL (4.0-10.5)
[2019-07-05 14:50] LABS: ACETAMINOPHEN < 10 ug/mL (10-30); ALBUMIN 5.3 g/dL (3.5-5.0); ALCOHOL < 10 mg/dL (NONE DETECTED); ALKALINE PHOSPHATASE 72 U/L (38-126); ANION GAP 15 (5-19); ASPARTATE AMINO TRANSFERASE 58 U/L (17-59); BILIRUBIN,DIRECT 0.3 mg/dL (0.0-0.4); BILIRUBIN,TOTAL 2.6 mg/dL (0.2-1.3); BLOOD UREA NITROGEN 12 mg/dL (7-20); CALCIUM 10.5 mg/dL (8.4-10.2); CARBON DIOXIDE 25 mmol/L (22-30); CHLORIDE 102 mmol/L (98-107); GLUCOSE 91 mg/dL (75-110); POTASSIUM 3.7 mmol/L (3.6-5.0); SALICYLATE < 1.0 mg/dL (2.0-20.0); TOTAL PROTEIN 8.9 g/dL (6.3-8.2)
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
[2019-07-05 18:23] LABS: APPEARANCE,URINE SLIGHTLY-CLOUDY; BILIRUBIN,URINE SMALL (NEGATIVE); GLUCOSE, URINE NEGATIVE (NEGATIVE); KETONES,URINE 80 mg/dL (NEGATIVE); LEUKOCYTE ESTERASE,URINE NEGATIVE (NEGATIVE); NITRITE,URINE NEGATIVE (NEGATIVE); PROTEIN,URINE 100 mg/dL (NEGATIVE); URINE SPECIFIC GRAVITY 1.036
[2019-07-05 18:26] LABS: COLOR,URINE YELLOW
[2019-07-05 18:39] LABS: URINE AMPHETAMINES SCREEN NEGATIVE; URINE BARBITURATES SCREEN NEGATIVE; URINE COCAINE SCREEN NEGATIVE; URINE METHADONE SCREEN NEGATIVE; URINE PHENCYCLIDINE SCREEN NEGATIVE
[2019-07-05 18:41] LABS: URINE BENZODIAZEPINES SCREEN UNCONFIRMED POSITIVE; URINE MARIJUANA (THC) SCREEN UNCONFIRMED POSITIVE
[2019-07-05] MEDS: CHLORPROMAZINE HCL INJ 25 MG/1 ML AMPULE IM SCH (20:49)
--- NOTE | 2019-07-05 23:58 | EKG REPORT ---
SEVERITY:- ABNORMAL ECG - SINUS RHYTHM PROBABLE LEFT ATRIAL ABNORMALITY NONSPECIFIC T ABNORMALITIES, DIFFUSE LEADS : Confirmed by: Jesi Hutchinson MD 05-Jul-2019 23:57:49
[2019-07-06] MEDS: CHLORPROMAZINE HCL INJ 25 MG/1 ML AMPULE IM SCH ×4 (03:43→20:30)
[2019-07-06] MEDS: BENZTROPINE MESYLATE INJ 2 MG/2 ML AMPULE IM SCH ×2 (08:28→11:04)
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
--- NOTE | 2019-07-06 14:40 | ER Document Report ---
Doctor's Note Notes: 07/06/19 14:39 Chart reviewed patient rounded on. Patient sitting on the bed calm. Some ecchymosis to his left eye. Does not elaborate on how he received that. Patient reports that he feels fine requesting to the restroom PHYSICAL EXAMINATION: GENERAL: Well-appearing and in no acute distress HEAD: Atraumatic, normocephalic. EYES: Pupils equal round extraocular movements intact, sclera anicteric, conjunctiva are normal. ENT: nares patent, Moist mucous membranes. NECK: Normal range of motion, supple without lymphadenopathy LUNGS: CTAB and equal. No wheezes rales or rhonchi. HEART: Regular rate and rhythm without murmurs ABDOMEN: Soft, no tenderness. No guarding, no rebound EXTREMITIES: Normal range of motion, NEUROLOGICAL: Cranial nerves grossly intact. PSYCH: Normal mood, normal affect. SKIN: Warm, Dry, normal turgor, no rashes or lesions noted 07/06/19 19:08 Patient has remained calm all day has not been placed in restraints. 07/06/19 20:08 Report given to TREVOR Velazquez
[2019-07-06] MEDS ORDERED: CHLORPROMAZINE HCL 50 MG TABLET PO ONE (20:29)
[2019-07-07] MEDS ORDERED: CHLORPROMAZINE HCL 50 MG TABLET PO ONE (02:36)
[2019-07-07] MEDS: CHLORPROMAZINE HCL INJ 25 MG/1 ML AMPULE IM SCH ×2 (02:44→08:30)
[2019-07-07] MEDS ORDERED: ACETAMINOPHEN 325 MG TABLET PO ONE (06:27)
--- NOTE | 2019-07-07 08:01 | PSYCHOLOGICAL NOTE ---
Psych Note - Psych Note Date seen by psych provider: 07/07/19 Time seen by psych provider: 07:15 Psych Note: Patient was accepted to [facility] at 07:[address] Gómez Noyola Number to contact for nurse to nurse is [phone] [facility] was notified for transportation at 07:50 Transportation order was faxed to [facility] at 07:51
[2019-07-07] MEDS: BENZTROPINE MESYLATE INJ 2 MG/2 ML AMPULE IM SCH (09:55)
--- NOTE | 2019-07-07 10:34 | ER Document Report ---
Doctor's Note Notes: 07/07/19 10:32 I went to assess patient for morning rounds but was informed by a security that the patient had already transferred to [facility] without my knowledge. I then spoke with the behavioral health team who confirmed that the patient was transferred. I received no reports overnight any concerns or acute issues. As the rounding provider this AM, I assessed the patient's labs, vitals, and records. No concerning findings this morning. Patient denies any acute complaints. Based on chart review and discussion with behavioral health team it appears the patient is medically stable for transfer and mental health wishes to discharge patient with close follow-up services in place.
[2019-07-07 11:13] VITALS: BP 131/32
== END 2019-07-07 11:10 ==
LOC: ER 14:02
DX: F23 Brief psychotic disorder (principal); F20.9 Schizophrenia, unspecified; Z78.1 Physical restraint status
CPT/HCPCS: 93005; 36415; 80307 ×4; 85025; 80053; 81001; 93010; J0515 ×2; J3230 ×2; J3490; 96372; 99285

== ENCOUNTER 2019-07-27 18:59 | Emergency (ER) | payer OTHER ==
--- NOTE | 2019-07-27 19:49 | ER Document Report ---
ED General - General TRAVEL OUTSIDE OF THE [place] IN LAST 30 DAYS: No <IFRAH GR - Last Filed: 07/27/19 21:29> <NOMI ANNE - Last Filed: 07/29/19 14:19> - General Chief Complaint: Psych Problem Stated Complaint: PSYCH Time Seen by Provider: 07/27/19 19:26 - HPI Notes: Patient presents from home requested by his family for aggressiveness and medical noncompliance. Patient has a history of schizophrenia was discharged from [facility] the beginning of June is not been taking his medication and was stated to nursing staff he has been having auditory and visual hallucinations. Denies any self-harm at this time. (IFRAH GR) - Related Data Allergies/Adverse Reactions: No Known Allergies Allergy (Verified 12/08/18 10:22) Past Medical History - Social History Smoking Status: Unknown if Ever Smoked Family History: None, Reviewed & Not Pertinent Patient has suicidal ideation: No Patient has homicidal ideation: No Renal/ Medical History: Denies: Hx Peritoneal Dialysis Psychiatric Medical History: Reports: Hx Bipolar Disorder, Hx Schizophrenia Traumatic Medical History: Reports: Hx Pneumothorax - Immunizations Immunizations up to date: Yes Hx Diphtheria, Pertussis, Tetanus Vaccination: Yes <IFRAH GR - Last Filed: 07/27/19 21:29> Review of Systems - Review of Systems Constitutional: No symptoms reported EENT: No symptoms reported Cardiovascular: No symptoms reported Respiratory: No symptoms reported Gastrointestinal: No symptoms reported Genitourinary: No symptoms reported Male Genitourinary: No symptoms reported Musculoskeletal: No symptoms reported Skin: No symptoms reported Hematologic/Lymphatic: No symptoms reported Neurological/Psychological: See HPI <IFRAH GR - Last Filed: 07/27/19 21:29> Physical Exam - General General appearance: Appears well, Alert - HEENT Head: Normocephalic, Atraumatic Eyes: Normal Conjunctiva: Normal Cornea: Normal Pupils: PERRL - Respiratory Respiratory status: No respiratory distress - Cardiovascular Rhythm: Regular Heart sounds: Normal auscultation - Abdominal Inspection: Normal Distension: No distension - Neurological Neuro grossly intact: Yes Cognition: Other - Cooperative to me. Please staff states that he is alert and oriented to them but he would not answer my questions regarding where he is or the year or month. <IFRAH GR - Last Filed: 07/27/19 21:29> - Vital signs Vitals: Temp Pulse BP Pulse Ox 98.1 F 66 155/86 H 100 07/27/19 19:23 07/27/19 19:23 07/27/19 19:23 07/27/19 19:23 Course - Laboratory Result Diagrams: 07/27/19 19:40 07/27/19 19:40 <IFRAH GR - Last Filed: 07/27/19 21:29> - Laboratory Result Diagrams: 07/27/19 19:40 07/27/19 19:40 <NOMI ANNE - Last Filed: 07/29/19 14:19> - Re-evaluation Re-evalutation: 07/27/19 20:36 Patient was showing active aggression to the nursing staff 10 mg of Geodon i ntramuscular was provided. 07/27/19 20:55 Patient medically clear at this time awaiting psychiatric consult in the a.m. (IFRAH GR) - Vital Signs Vital signs: Temp Pulse Resp BP Pulse Ox 98.1 F 66 16 144/93 H 100 07/29/19 08:43 07/29/19 08:43 07/29/19 08:43 07/29/19 08:43 07/29/19 08:43 - Laboratory Laboratory results interpreted by me: 07/27/19 07/27/19 19:30 19:40 Total Protein 8.7 H Urine Protein 30 H Urine Ketones 20 H Urine Urobilinogen 2.0 H Salicylates < 1.0 L Acetaminophen < 10 L - EKG Interpretation by Me Additional EKG results interpreted by me: 07/27/19 21:18 Time 1955 Rate of 67, normal sinus rhythm, normal axis and intervals (IFRAH GR) Discharge <IFRAH GR - Last Filed: 07/27/19 21:29> <NOMI ANNE - Last Filed: 07/29/19 14:19> - Discharge Clinical Impression: Aggressive behavior, Medical non-compliance Schizophrenia Qualifiers: Schizophrenia type: other Qualified Code(s): F20.89 - Other schizophrenia Condition: Stable Disposition: PSYCH HOSP/UNIT
[2019-07-27] MEDS ORDERED: ZIPRASIDONE MESYLATE INJ/PF 20 MG SDV IM ONE (20:13)
[2019-07-27 20:18] LABS: ABSOLUTE EOSINOPHILS # (AUTO) 0.2 10^3/uL (0.0-0.6); ABSOLUTE LYMPHOCYTES (AUTO) 2.9 10^3/uL (0.5-4.7); ABSOLUTE MONOCYTES (AUTO) 0.6 10^3/uL (0.1-1.4); ABSOLUTE NEUT (AUTO) 4.3 10^3/uL (1.7-8.2); BASOPHILS % (AUTO) 0.4 % (0-2); EOSINOPHILS % (AUTO) 2.3 % (0-6); HEMATOCRIT 44.1 % (37.9-51.0); LYMPHOCYTES % (AUTO) 36.3 % (13-45); MEAN CORPUSCULAR HEMOGLOBIN 30.2 pg (27.0-33.4); MEAN CORPUSCULAR VOLUME 89 fl (80-97); MONOCYTES % (AUTO) 7.6 % (3-13); PLATELET COUNT 277 10^3/uL (150-450); RED BLOOD COUNT 4.97 10^6/uL (4.35-5.55); RED CELL DISTRIBUTION WIDTH 13.9 % (11.5-14.0); SEGMENTED NEUTROPHILS % (AUTO) 53.4 % (42-78); TOTAL CELLS COUNTED % (AUTO) 100 %; WHITE BLOOD COUNT 8.1 10^3/uL (4.0-10.5)
[2019-07-27 20:37] LABS: ACETAMINOPHEN < 10 ug/mL (10-30); ALCOHOL < 10 mg/dL (NONE DETECTED); ALKALINE PHOSPHATASE 66 U/L (38-126); ANION GAP 13 (5-19); ASPARTATE AMINO TRANSFERASE 39 U/L (17-59); BILIRUBIN,DIRECT 0.1 mg/dL (0.0-0.4); BILIRUBIN,TOTAL 1.2 mg/dL (0.2-1.3); BLOOD UREA NITROGEN 14 mg/dL (7-20); CALCIUM 10.1 mg/dL (8.4-10.2); CARBON DIOXIDE 26 mmol/L (22-30); CHLORIDE 104 mmol/L (98-107); GLUCOSE 87 mg/dL (75-110); POTASSIUM 4.4 mmol/L (3.6-5.0); SALICYLATE < 1.0 mg/dL (2.0-20.0); TOTAL PROTEIN 8.7 g/dL (6.3-8.2)
[2019-07-27 20:46] LABS: APPEARANCE,URINE SLIGHTLY-CLOUDY; BILIRUBIN,URINE NEGATIVE (NEGATIVE); COLOR,URINE YELLOW; GLUCOSE, URINE NEGATIVE (NEGATIVE); KETONES,URINE 20 mg/dL (NEGATIVE); LEUKOCYTE ESTERASE,URINE NEGATIVE (NEGATIVE); NITRITE,URINE NEGATIVE (NEGATIVE); PROTEIN,URINE 30 mg/dL (NEGATIVE); URINE SPECIFIC GRAVITY 1.034
[2019-07-27 20:59] LABS: URINE AMPHETAMINES SCREEN NEGATIVE; URINE BARBITURATES SCREEN NEGATIVE; URINE BENZODIAZEPINES SCREEN NEGATIVE; URINE COCAINE SCREEN NEGATIVE; URINE METHADONE SCREEN NEGATIVE; URINE PHENCYCLIDINE SCREEN NEGATIVE
[2019-07-27 21:05] LABS: URINE MARIJUANA (THC) SCREEN UNCONFIRMED POSITIVE
--- NOTE | 2019-07-27 22:54 | EKG REPORT ---
SEVERITY:- OTHERWISE NORMAL ECG - SINUS RHYTHM ATRIAL PREMATURE COMPLEX : Confirmed by: Jesi Hutchinson MD 27-Jul-2019 22:53:48
[2019-07-28] MEDS ORDERED: ZIPRASIDONE MESYLATE INJ/PF 20 MG SDV IM ONE ×2 (05:46→05:47)
--- NOTE | 2019-07-28 07:59 | ER Document Report ---
Doctor's Note Notes: 07/28/19 07:58 Patient was agitated and becoming violent at 05 37. He was placed in locking restraints until 01 20 at which time he had come down after he received 10 mg of Geodon IM at 546. He was calm after being removed from the restraints.
--- NOTE | 2019-07-28 11:10 | PSYCHOLOGICAL NOTE ---
Psych Note - Psych Note Date seen by psych provider: 07/28/19 Time seen by psych provider: 08:30 Psych Note: Reason For Consult:IVC Consent Permissions: refused Patient noted to [facility] ED via law enforcement under IVC. Mobile crisis responder petition for involuntary commitment. There is concern per petition the patient is not compliant with treatment, is diagnosed with schizophrenia, not eating, sleeping or engaging in personal hygiene. Patient's family reported to mobile maintenance worker swimming pool that he was having both visual and auditory hallucinations. Patient had a knife on his person which was removed by family members during the mobile maintenance worker swimming pool's visit. Petition continues to report that the patient became verbally and physically aggressive with the mobile maintenance worker swimming pool, and that he has a history of becoming violent with people. Petition reports that the patient was presenting manic with incoherent speech, irrational thoughts and flight of ideas. Patient reports that he does not feel that he has a mental health problem. He states that he only seems to have difficulty when he is on the medications that he is "fine when smoking weed." Patient continued to state that there are restraints on the bed and then states that he would never had a woman. Patient starts discussing people he would fight. Patient clearly requests shower and Pedialyte. When clinician stated that hospital may not carry Pedialyte he clearly requested a "chocolate Ensure." Patient is alert and orientated to person, place, time. Mood is currently elevated with blunted affect. Patient denies suicidal and homicidal ideation. Patient's thought processes are disorganized however, he is able to clearly request wants (ie shower, Pedialyte and chocolate Ensure). Patient's conversational speech is slightly pressured and tangential which is lyrical and is accompanied by hand gestures. Patient is noted to have some psychomotor agitation with pacing and constant repositioning when sitting on bed during evaluation. Chart review conducted: Patient was seen with similar etiology in the beginning of the month.patient was transported under IVC to [facility] on 07/07/2019. Behavioral health team started seeing patient in April 2016 (patient was seen in April 2016 and in 2017 for substance abuse and depression). It is noted patient did not have any difficulties with violent tendencies or psychosis until 2018. Diagnosis: Unspecified psychosis; patient has a reported history of mental health and substance use 292.9 (F19.99) unspecified or unknown substance related disorder per history Medication recommendations per [facility]'s contracted psychiatrist Dr Nilo CARRINGTON are as follows Zyprexa 10mg once Zyprexa 5mg twice daily Cogentin 1mg daily Impression/Plan: patient is recommended to continue under IVC for observation. This patient is well-known to clinician and department. Patient has a history of both substance abuse and mental health and it is currently unclear what is causing the patient's current presentation. Patient was just discharged this month from inpatient psychiatric treatment. Patient has a known substance abuse history (documented back to 2015) and there is significant concern that the patient engages in the use of synthetic marijuana which results in patients violent and psychotic presentations. Medication recommendations have been provided. Patient will be reevaluated. Dr. Morse was consulted and the care management as patient; attending physician is in agreement with recommendations and disposition.
[2019-07-28] MEDS ORDERED: OLANZAPINE INJ/PF 10 MG SDV IM ONE (11:22)
[2019-07-28] MEDS: BENZTROPINE MESYLATE INJ 2 MG/2 ML AMPULE IM SCH (11:32)
--- NOTE | 2019-07-28 12:04 | ER Document Report ---
Doctor's Note Notes: 07/28/19 12:04 Patient reevaluated, chart reviewed, labs reviewed. Patient remains medically cleared. He is on IVC status. He is currently pacing back and forth in his room. He was just medicated with Cogentin and Zyprexa. We will continue to monitor.
[2019-07-28] MEDS: OLANZAPINE INJ/PF 10 MG SDV IM SCH (18:24)
[2019-07-29] MEDS ORDERED: ACETAMINOPHEN 325 MG TABLET PO ONE (04:45)
[2019-07-29 08:43] VITALS: BP 144/93
[2019-07-29] MEDS: BENZTROPINE MESYLATE INJ 2 MG/2 ML AMPULE IM SCH (09:25)
[2019-07-29] MEDS: OLANZAPINE INJ/PF 10 MG SDV IM SCH (09:25)
--- NOTE | 2019-07-29 12:16 | PSYCHOLOGICAL NOTE ---
Psych Note - Psych Note Date seen by psych provider: 07/29/19 Time seen by psych provider: 11:00 Psych Note: Patient's status remains unchanged. Patient is requesting "outpatient therapy with [facility]." Patient states he does not want medications. Patient asked to use the phone. Clinician informed patient he is allowed 2 calls per day at the nurse's station. Clinician exited room to see if phone was in use, and when clinician reentered room clinician observed patient engaged in conversation and quickly stopped talking when he noticed clinician had reentered room. Patient is alert and orientated to person, place, time. Mood is currently el evated with normal affect. Patient denies suicidal and homicidal ideation. Patient's thought processes are disorganized however, he is able to clearly request wants. Patient's conversational speech is slightly pressured and tangential. Clinician observed behaviors that are suggestive of responding to internal stimuli. Chart review conducted: Patient was seen with similar etiology in the beginning of the month.patient was transported under IVC to [facility] on 07/07/2019. Behavioral health team started seeing patient in April 2016 (patient was seen in April 2016 and in 2017 for substance abuse and depression). It is noted patient did not have any difficulties with violent tendencies or psychosis until 2018. Diagnosis: Unspecified psychosis; patient has a reported history of mental health and substance use 292.9 (F19.99) unspecified or unknown substance related disorder per history Medication recommendations per [facility]'s contracted psychiatrist Dr Nilo CARRINGTON are as follows Zyprexa 10mg once Zyprexa 5mg twice daily Cogentin 1mg daily Impression/Plan: Patient is recommended to continue under IVC for observation. This patient is well-known to behavioral health department. Patient has a history of both substance abuse and mental health and it is currently unclear what is causing the patient's current presentation. Patient was just discharged this month from inpatient psychiatric treatment. Patient has a known substance abuse history (documented back to 2016) and there is significant concern that the patient engages in the use of synthetic marijuana which results in patients violent and psychotic presentations. Medication recommendations have been provided. Patient will be reevaluated. Dr. Morse was consulted and the care management as patient; attending physician is in agreement with recommendations and disposition.
[2019-07-29] MEDS ORDERED: MAG HYDROX/AL HYDROX/SIMETH SUSP 30 ML UDCUP PO ONE (12:25)
--- NOTE | 2019-07-29 12:27 | ER Document Report ---
Doctor's Note Notes: 07/29/19 12:25 PHYSICAL EXAMINATION: GENERAL: Well-appearing and in no acute distress. HEAD: Atraumatic, normocephalic. EYES: sclera anicteric, conjunctiva are normal. ENT: nares patent. Moist mucous membranes. NECK: Normal range of motion, supple without lymphadenopathy LUNGS: CTAB and equal. No wheezes rales or rhonchi. HEART: Regular rate and rhythm without murmurs ABDOMEN: Soft, epigastric tenderness, normal bowel sounds, no guarding. EXTREMITIES: Normal range of motion, no pitting edema. No cyanosis. NEUROLOGICAL: Cranial nerves grossly intact. Normal speech. Normal gait. PSYCH: Normal mood, tangential speech SKIN: Warm, Dry, normal turgor, no rashes or lesions noted Patient appears medically stable for transfer discharge pending mental health evaluation. Notes reviewed as well as diagnostic test results. Patient does complain of some abdominal cramping for which he requested times. Patient will be given Maalox. 07/29/19 14:18 Patient has been accepted to [facility] in transfer deputy is here for patient. Patient otherwise stable for transfer at this time.
== END 2019-07-29 14:28 ==
LOC: ER 18:59
DX: F20.89 Other schizophrenia (principal); Z91.14 Patient's other noncompliance with medication regimen
CPT/HCPCS: 93005; 99285; 96372; 36415; 80307 ×4; 85025; 80053; 81001; 93010; J0515 ×2; J3486 ×2